=== PATIENT | female | born 1965 | race African-American/Black ===

== ENCOUNTER 2021-04-17 13:53 | Inpatient (IN) | payer BC ==
[2021-04-17] MEDS ORDERED: methylPREDNISolone Sod Succ/PF 125 MG/2 ML VIAL ONE (14:14)
[2021-04-17] MEDS ORDERED: Albuterol Sulfate 2.5 mg/3 ml Neb ONE ×2 (14:15→14:16)
[2021-04-17 14:34] LABS: #Basophils 0.1 thou/uL (0.0-0.2); #Eosinphils 0.1 thou/uL (0.0-0.7); #Lymphocytes 1.5 thou/uL (1.20-3.40); #Monocytes 0.5 thou/uL (0.11-0.59); #Neutrophils 3.6 thou/uL (1.40-6.50); %Eosinophils 2.6 % (0.0-10.0); %Lymphocytes 25.7 % (21.0-51.0); %Monocytes 8.1 % (0.0-10.0); %Neutrophils 62.6 % (42.0-75.0); Hemoglobin 11.1 g/dL (12.0-16.0); Mean Corpuscular HGB CONC 33.8 g/dL (32.0-36.0); Mean Corpuscular Hemoglobin 27.3 pg (27.0-31.0); Mean Corpuscular Volume 80.8 fL (78.0-98.0); Platelet Count 237 thou/uL (130-400); Red Blood Cell (RBC) Count 4.07 mill/uL (4.20-5.40); White Blood Cell (WBC) Count 5.8 thou/uL (4.8-10.8)
[2021-04-17 15:08] LABS: ALT (SGPT) 10 U/L (8-55); AST (SGOT) 11 U/L (5-34); Albumin 3.7 g/dL (3.5-5.0); Alkaline Phosphatase 96 U/L (40-110); Anion Gap 12 mmol/L (10-20); BUN (Urea Nitrogen) 39 mg/dL (9.8-20.1); Bilirubin, Total 0.4 mg/dL (0.2-1.2); Calc. Creatinine Clearance 0 mL/min (70-130); Calcium 8.7 mg/dL (7.8-10.44); Carbon Dioxide 26 mmol/L (22-29); Chloride 104 mmol/L (98-107); Glucose 341 mg/dL (70-105); Potassium 4.7 mmol/L (3.5-5.1); Protein, Total 6.7 g/dL (6.0-8.3); Sodium 137 mmol/L (136-145)
[2021-04-17 17:01] LABS: Actual Bicarbonate (HCO3v) 25 mEq/L (22-28); Analyzer IN Cardio ER; Base Excess -0.8 mEq/L (-2.0 to +3.0); Calcium, Ionized (venous) 1.14 mmol/L (1.16-1.32); Chloride (VBG) 104 mmol/L (98-106); Hemoglobin (Hb) 11.6 g/dL (11.7-16.0); Potassium (VBG) 5.08 mmol/L (3.70-5.30); Sodium 136.9 mmol/L (133-146); pH (venous) 7.35 (7.32-7.43)
[2021-04-17] MEDS ORDERED: Ondansetron PF 4 MG/2 ML Vial IVP PRN (18:22)
[2021-04-17] MEDS ORDERED: Albuterol Sulfate 1.25 MG/3 ML NEB ONE (20:57)
[2021-04-17] MEDS ORDERED: Azithromycin 500 MG VIAL ONE (21:06)
[2021-04-17] MEDS: Azithromycin 500 MG in Sodium Chloride 0.9% 250 ML 250 ML IVPB SCH (21:07)
[2021-04-17] MEDS ORDERED: ALPRAZolam 0.25 MG TAB PO SCH (22:00)
[2021-04-18] MEDS ORDERED: Heparin 10,000 UNITS/ 10 ML VIAL ONE (00:37)
[2021-04-18] MEDS ORDERED: ALPRAZolam 0.25 MG TAB ONE (00:39)
[2021-04-18] MEDS ORDERED: methylPREDNISolone Sod Succ 40 MG VIAL ONE ×2 (01:14→06:16)
[2021-04-18] MEDS: methylPREDNISolone Sod Succ 40 MG VIAL IVP SCH ×4 (01:18→17:29)
[2021-04-18] MEDS: Heparin 5,000 UNITS/ML VIAL SC SCH ×4 (02:01→20:11)
[2021-04-18] MEDS ORDERED: Acetaminophen 325 MG TAB ONE ×2 (05:21→05:26)
[2021-04-18 05:24] LABS: #Basophils 0.1 thou/uL (0.0-0.2); #Monocytes 0.1 thou/uL (0.11-0.59); #Neutrophils 10.2 thou/uL (1.40-6.50); %Basophils 0.4 % (0.0-1.0); %Eosinophils 0.1 % (0.0-10.0); %Monocytes 1.2 % (0.0-10.0); %Neutrophils 89.3 % (42.0-75.0); Hemoglobin 12.4 g/dL (12.0-16.0); Mean Corpuscular HGB CONC 33.2 g/dL (32.0-36.0); Mean Corpuscular Volume 81.2 fL (78.0-98.0); Platelet Count 277 thou/uL (130-400); RBC Distribution Width 13.3 % (11.5-14.5); Red Blood Cell (RBC) Count 4.59 mill/uL (4.20-5.40); White Blood Cell (WBC) Count 11.5 thou/uL (4.8-10.8)
[2021-04-18] MEDS: Acetaminophen 325 MG TAB PO PRN ×2 (05:24→15:17)
[2021-04-18 05:52] LABS: Anion Gap 16 mmol/L (10-20); BUN (Urea Nitrogen) 42 mg/dL (9.8-20.1); Calc. Creatinine Clearance 0 mL/min (70-130); Calcium 9.9 mg/dL (7.8-10.44); Carbon Dioxide 23 mmol/L (22-29); Chloride 102 mmol/L (98-107); Glucose 418 mg/dL (70-105); Potassium 4.8 mmol/L (3.5-5.1); Sodium 136 mmol/L (136-145)
[2021-04-18] MEDS ORDERED: traMADol HCl 50 MG TAB ONE (06:55)
[2021-04-18] MEDS ORDERED: traMADol HCl 50 MG TAB PO SCH (07:00)
[2021-04-18] MEDS ORDERED: Prevnar 13-Val Conj/PF 0.5 ML SYRINGE IM ONE (09:00)
[2021-04-18 11:14] LABS: SARS-CoV-2 PCR by NAA Not Detected (NotDetected)
[2021-04-18] MEDS ORDERED: cloNIDine 0.3 MG TAB PO SCH ×2 (12:30→21:00)
[2021-04-18] MEDS ORDERED: Carvedilol 25 MG TAB PO SCH (12:30)
[2021-04-18 12:35] VITALS: BMI 38.5
[2021-04-18] MEDS ORDERED: Dextrose 5% in Water 1,000 ML IV PRN (16:30)
[2021-04-18] MEDS ORDERED: Dextrose 50% Abboject 50 ML SYRINGE SLOW IVP PRN (16:30)
[2021-04-18] MEDS: Insulin Regular 300 UNITS/3 ML VIAL SC PRN ×2 (17:29→22:01)
[2021-04-18] MEDS: Azithromycin 500 MG in Sodium Chloride 0.9% 250 ML 250 ML IVPB SCH (17:30)
[2021-04-18] MEDS ORDERED: Sodium Bicarbonate 75 MEQ in Sodium Chloride 0.45% 1,000 ML IV ONE (19:30)
[2021-04-18] MEDS ORDERED: NIFEdipine XL 60 MG TAB PO SCH (19:30)
[2021-04-18] MEDS: Carvedilol 25 MG TAB PO SCH (20:11)
[2021-04-18 20:13] LABS: Bacteria/HPF None Seen HPF (None Seen); Bilirubin Negative (Negative); Blood, Urine Trace (Negative); Clarity Clear (Clear); Glucose, Urine (Dipstick) Greater than 1000 mg/dL (Negative); Ketone, Urine Negative (Negative); Leukocyte Negative Leu/uL (Negative); Nitrite Negative (Negative); Protein, Urine (Dipstick) 200 mg/dL (Neg-Trace); RBC/HPF 0-3 HPF (0-3); Specific Gravity, Urine 1.015 (1.002-1.036); Squamous Epithelial 0-3 HPF (0-3); Urobilinogen Normal mg/dL (Less than 2); WBC/HPF 0-3 HPF (0-3)
[2021-04-18 20:17] LABS: Urine Culture Reflex No No
[2021-04-18 20:37] LABS: Creatinine, Urine 32.47 mg/dL (47-110)
[2021-04-19] MEDS: methylPREDNISolone Sod Succ 40 MG VIAL IVP SCH ×4 (00:55→22:21)
[2021-04-19 04:34] LABS: #Lymphocytes 1.1 thou/uL (1.20-3.40); #Monocytes 0.4 thou/uL (0.11-0.59); #Neutrophils 10.2 thou/uL (1.40-6.50); %Basophils 0.4 % (0.0-1.0); %Lymphocytes 9.2 % (21.0-51.0); %Monocytes 3.5 % (0.0-10.0); %Neutrophils 86.8 % (42.0-75.0); Hemoglobin 11.5 g/dL (12.0-16.0); Mean Corpuscular HGB CONC 32.7 g/dL (32.0-36.0); Mean Corpuscular Hemoglobin 26.7 pg (27.0-31.0); Mean Corpuscular Volume 81.5 fL (78.0-98.0); Mean Platelet Volume 8.1 fL (7.4-10.4); Platelet Count 260 thou/uL (130-400); RBC Distribution Width 13.3 % (11.5-14.5); Red Blood Cell (RBC) Count 4.32 mill/uL (4.20-5.40); White Blood Cell (WBC) Count 11.8 thou/uL (4.8-10.8)
[2021-04-19 04:52] LABS: Iron 96 ug/dL (50-170); Iron Binding Capacity, Total 299 mcg/dL (265-497)
[2021-04-19 04:55] LABS: Anion Gap 15 mmol/L (10-20); BUN (Urea Nitrogen) 49 mg/dL (9.8-20.1); Calc. Creatinine Clearance 35 mL/min (70-130); Carbon Dioxide 23 mmol/L (22-29); Chloride 99 mmol/L (98-107); Potassium 4.6 mmol/L (3.5-5.1); Sodium 132 mmol/L (136-145)
[2021-04-19 04:56] LABS: ALT (SGPT) 11 U/L (8-55); AST (SGOT) 10 U/L (5-34); Albumin 3.7 g/dL (3.5-5.0); Alkaline Phosphatase 91 U/L (40-110); Bilirubin, Total 0.3 mg/dL (0.2-1.2); Calcium 9.3 mg/dL (7.8-10.44); Globulin 3.9 g/dL (2.4-3.5); Glucose 389 mg/dL (70-105); Protein, Total 7.6 g/dL (6.0-8.3)
[2021-04-19] MEDS: Insulin Regular 300 UNITS/3 ML VIAL SC PRN ×5 (05:45→20:37)
[2021-04-19] MEDS ORDERED: Lantus 1000 UNITS/10 ML VIAL SC SCH ×4 (09:00→21:00)
[2021-04-19] MEDS ORDERED: NIFEdipine XL 60 MG TAB PO SCH (09:00)
[2021-04-19] MEDS: Aspirin 81 mg Enteric Coated Tablet PO SCH (09:44)
[2021-04-19] MEDS: DULoxetine 30 MG CAP PO SCH (09:44)
[2021-04-19] MEDS: Atorvastatin Calcium 40 MG TAB PO SCH (09:44)
[2021-04-19] MEDS: Gabapentin 100 MG CAP PO SCH (09:45)
[2021-04-19] MEDS: Acetaminophen 325 MG TAB PO PRN ×2 (09:45→22:54)
[2021-04-19] MEDS: Ezetimibe 10 MG TAB PO SCH (09:45)
[2021-04-19] MEDS: NIFEdipine XL 60 MG TAB PO SCH ×2 (09:46→20:38)
[2021-04-19] MEDS: Carvedilol 25 MG TAB PO SCH (09:46)
[2021-04-19] MEDS: Heparin 5,000 UNITS/ML VIAL SC SCH ×3 (09:46→20:35)
[2021-04-19] MEDS ORDERED: Labetalol 100 MG TAB PO SCH (10:15)
[2021-04-19] MEDS: Sodium Chloride 0.9% 1,000 ML IV SCH ×2 (10:33→20:30)
[2021-04-19] MEDS: Azithromycin 500 MG in Sodium Chloride 0.9% 250 ML 250 ML IVPB SCH (19:49)
[2021-04-19] MEDS: Labetalol 100 MG TAB PO SCH (20:35)
[2021-04-19] MEDS: ALPRAZolam 0.25 MG TAB PO PRN (22:51)
[2021-04-20] MEDS: methylPREDNISolone Sod Succ 40 MG VIAL IVP SCH ×2 (05:56→21:34)
[2021-04-20] MEDS: Insulin Regular 300 UNITS/3 ML VIAL SC PRN ×4 (05:57→17:04)
[2021-04-20] MEDS: Sodium Chloride 0.9% 1,000 ML IV SCH ×3 (05:57→18:48)
[2021-04-20] MEDS ORDERED: Lantus 1000 UNITS/10 ML VIAL SC SCH ×2 (07:41→09:00)
[2021-04-20 07:45] LABS: Albumin 3.6 g/dL (3.5-5.0); Anion Gap 15 mmol/L (10-20); BUN (Urea Nitrogen) 51 mg/dL (9.8-20.1); BUN/Creatinine Ratio 15.84; Calc. Creatinine Clearance 36 mL/min (70-130); Calcium 8.7 mg/dL (7.8-10.44); Carbon Dioxide 24 mmol/L (22-29); Chloride 101 mmol/L (98-107); Glucose 462 mg/dL (70-105); Phosphorus 4.7 mg/dL (2.3-4.7); Potassium 4.7 mmol/L (3.5-5.1); Sodium 135 mmol/L (136-145)
[2021-04-20 09:20] LABS: #Monocytes 0.4 thou/uL (0.11-0.59); #Neutrophils 10.1 thou/uL (1.40-6.50); %Basophils 0.3 % (0.0-1.0); %Lymphocytes 8.7 % (21.0-51.0); %Monocytes 3.4 % (0.0-10.0); %Neutrophils 87.6 % (42.0-75.0); Hemoglobin 11.5 g/dL (12.0-16.0); Mean Corpuscular HGB CONC 32.4 g/dL (32.0-36.0); Mean Corpuscular Hemoglobin 26.7 pg (27.0-31.0); Mean Corpuscular Volume 82.5 fL (78.0-98.0); Mean Platelet Volume 8.5 fL (7.4-10.4); Platelet Count 256 thou/uL (130-400); RBC Distribution Width 13.4 % (11.5-14.5); Red Blood Cell (RBC) Count 4.29 mill/uL (4.20-5.40); White Blood Cell (WBC) Count 11.5 thou/uL (4.8-10.8)
[2021-04-20 09:41] LABS: ALT (SGPT) 14 U/L (8-55); AST (SGOT) 11 U/L (5-34); Albumin 3.6 g/dL (3.5-5.0); Alkaline Phosphatase 88 U/L (40-110); Anion Gap 17 mmol/L (10-20); BUN (Urea Nitrogen) 52 mg/dL (9.8-20.1); Bilirubin, Total 0.4 mg/dL (0.2-1.2); Calc. Creatinine Clearance 35 mL/min (70-130); Calcium 8.3 mg/dL (7.8-10.44); Carbon Dioxide 23 mmol/L (22-29); Chloride 98 mmol/L (98-107); Globulin 3.5 g/dL (2.4-3.5); Potassium 4.7 mmol/L (3.5-5.1); Protein, Total 7.1 g/dL (6.0-8.3); Sodium 133 mmol/L (136-145)
[2021-04-20] MEDS: Ezetimibe 10 MG TAB PO SCH (09:55)
[2021-04-20] MEDS: Labetalol 100 MG TAB PO SCH ×2 (09:55→21:32)
[2021-04-20] MEDS: DULoxetine 30 MG CAP PO SCH (09:55)
[2021-04-20] MEDS: Heparin 5,000 UNITS/ML VIAL SC SCH ×3 (09:55→21:32)
[2021-04-20] MEDS: Atorvastatin Calcium 40 MG TAB PO SCH (09:56)
[2021-04-20] MEDS: NIFEdipine XL 60 MG TAB PO SCH ×2 (09:57→21:31)
[2021-04-20] MEDS: Gabapentin 100 MG CAP PO SCH (09:57)
[2021-04-20] MEDS: Aspirin 81 mg Enteric Coated Tablet PO SCH (09:57)
[2021-04-20 10:03] LABS: Glucose 623 mg/dL (70-105)
[2021-04-20] MEDS: HumaLOG 300 UNITS/3 ML VIAL SC SCH ×2 (17:03→17:06)
[2021-04-20] MEDS: Azithromycin 500 MG in Sodium Chloride 0.9% 250 ML 250 ML IVPB SCH (17:11)
[2021-04-20] MEDS: ALPRAZolam 0.25 MG TAB PO PRN (18:48)
[2021-04-20] MEDS: HumaLOG 300 UNITS/3 ML VIAL SC PRN (21:34)
[2021-04-21] MEDS: Sodium Chloride 0.9% 1,000 ML IV SCH ×3 (03:01→17:25)
[2021-04-21 06:32] LABS: #Basophils 0.1 thou/uL (0.0-0.2); #Lymphocytes 1.8 thou/uL (1.20-3.40); #Monocytes 0.5 thou/uL (0.11-0.59); #Neutrophils 8.5 thou/uL (1.40-6.50); %Basophils 0.6 % (0.0-1.0); %Eosinophils 0.1 % (0.0-10.0); %Lymphocytes 16.3 % (21.0-51.0); %Monocytes 4.8 % (0.0-10.0); %Neutrophils 78.3 % (42.0-75.0); Hemoglobin 12.6 g/dL (12.0-16.0); Mean Corpuscular HGB CONC 32.3 g/dL (32.0-36.0); Mean Corpuscular Hemoglobin 26.6 pg (27.0-31.0); Mean Corpuscular Volume 82.4 fL (78.0-98.0); Mean Platelet Volume 8.9 fL (7.4-10.4); Platelet Count 264 thou/uL (130-400); RBC Distribution Width 13.5 % (11.5-14.5); Red Blood Cell (RBC) Count 4.75 mill/uL (4.20-5.40); White Blood Cell (WBC) Count 10.8 thou/uL (4.8-10.8)
[2021-04-21 06:36] LABS: Albumin 3.7 g/dL (3.5-5.0); Anion Gap 15 mmol/L (10-20); BUN (Urea Nitrogen) 44 mg/dL (9.8-20.1); BUN/Creatinine Ratio 14.57; Calc. Creatinine Clearance 39 mL/min (70-130); Calcium 8.8 mg/dL (7.8-10.44); Carbon Dioxide 23 mmol/L (22-29); Chloride 101 mmol/L (98-107); Glucose 365 mg/dL (70-105); Magnesium 2.1 mg/dL (1.6-2.6); Phosphorus 4.1 mg/dL (2.3-4.7); Potassium 4.5 mmol/L (3.5-5.1); Sodium 134 mmol/L (136-145)
[2021-04-21] MEDS: Insulin Regular 300 UNITS/3 ML VIAL SC PRN ×3 (06:41→17:21)
[2021-04-21] MEDS: Labetalol 100 MG TAB PO SCH ×2 (08:19→20:49)
[2021-04-21] MEDS: Atorvastatin Calcium 40 MG TAB PO SCH (08:20)
[2021-04-21] MEDS: Aspirin 81 mg Enteric Coated Tablet PO SCH (08:20)
[2021-04-21] MEDS: NIFEdipine XL 60 MG TAB PO SCH ×2 (08:20→20:49)
[2021-04-21] MEDS: Ezetimibe 10 MG TAB PO SCH (08:20)
[2021-04-21] MEDS: Gabapentin 100 MG CAP PO SCH (08:20)
[2021-04-21] MEDS: HumaLOG 300 UNITS/3 ML VIAL SC SCH ×3 (08:21→17:21)
[2021-04-21] MEDS: Heparin 5,000 UNITS/ML VIAL SC SCH ×3 (08:21→20:50)
[2021-04-21] MEDS: DULoxetine 30 MG CAP PO SCH (08:21)
[2021-04-21] MEDS: Lantus 1000 UNITS/10 ML VIAL SC SCH (08:28)
[2021-04-21] MEDS: methylPREDNISolone Sod Succ 40 MG VIAL IVP SCH (08:29)
[2021-04-21] MEDS ORDERED: Lantus 1000 UNITS/10 ML VIAL SC SCH ×2 (09:00→21:00)
[2021-04-21] MEDS: Azithromycin 500 MG in Sodium Chloride 0.9% 250 ML 250 ML IVPB SCH (17:19)
[2021-04-21] MEDS: HumaLOG 300 UNITS/3 ML VIAL SC PRN (20:50)
[2021-04-22] MEDS: Sodium Chloride 0.9% 1,000 ML IV SCH ×2 (03:38→11:00)
[2021-04-22] MEDS ORDERED: predniSONE 20 MG TAB PO SCH (08:00)
[2021-04-22 08:39] LABS: #Eosinphils 0.1 thou/uL (0.0-0.7); #Lymphocytes 4.2 thou/uL (1.20-3.40); #Monocytes 0.8 thou/uL (0.11-0.59); #Neutrophils 4.8 thou/uL (1.40-6.50); %Basophils 0.3 % (0.0-1.0); %Eosinophils 0.9 % (0.0-10.0); %Lymphocytes 42.2 % (21.0-51.0); %Monocytes 8.2 % (0.0-10.0); %Neutrophils 48.5 % (42.0-75.0); Mean Corpuscular HGB CONC 31.5 g/dL (32.0-36.0); Mean Corpuscular Hemoglobin 26.2 pg (27.0-31.0); Mean Corpuscular Volume 83.1 fL (78.0-98.0); Mean Platelet Volume 8.2 fL (7.4-10.4); Platelet Count 277 thou/uL (130-400); RBC Distribution Width 13.5 % (11.5-14.5); Red Blood Cell (RBC) Count 4.95 mill/uL (4.20-5.40); White Blood Cell (WBC) Count 9.9 thou/uL (4.8-10.8)
[2021-04-22] MEDS: Ezetimibe 10 MG TAB PO SCH (08:59)
[2021-04-22] MEDS: Atorvastatin Calcium 40 MG TAB PO SCH (09:00)
[2021-04-22] MEDS: Aspirin 81 mg Enteric Coated Tablet PO SCH (09:00)
[2021-04-22 09:01] LABS: ALT (SGPT) 16 U/L (8-55); AST (SGOT) 15 U/L (5-34); Albumin 3.4 g/dL (3.5-5.0); Alkaline Phosphatase 79 U/L (40-110); Anion Gap 14 mmol/L (10-20); BUN (Urea Nitrogen) 36 mg/dL (9.8-20.1); Bilirubin, Total 0.5 mg/dL (0.2-1.2); Calc. Creatinine Clearance 42 mL/min (70-130); Calcium 8.2 mg/dL (7.8-10.44); Carbon Dioxide 28 mmol/L (22-29); Chloride 102 mmol/L (98-107); Globulin 3.2 g/dL (2.4-3.5); Glucose 168 mg/dL (70-105); Magnesium 1.6 mg/dL (1.6-2.6); Potassium 3.7 mmol/L (3.5-5.1); Protein, Total 6.6 g/dL (6.0-8.3); Sodium 140 mmol/L (136-145)
[2021-04-22] MEDS: Gabapentin 100 MG CAP PO SCH (09:01)
[2021-04-22] MEDS: Labetalol 100 MG TAB PO SCH (09:01)
[2021-04-22] MEDS: NIFEdipine XL 60 MG TAB PO SCH (09:01)
[2021-04-22] MEDS: DULoxetine 30 MG CAP PO SCH (09:02)
[2021-04-22] MEDS: Heparin 5,000 UNITS/ML VIAL SC SCH (09:03)
[2021-04-22] MEDS: HumaLOG 300 UNITS/3 ML VIAL SC SCH ×2 (09:03→13:24)
[2021-04-22] MEDS: Lantus 1000 UNITS/10 ML VIAL SC SCH (09:04)
[2021-04-22] MEDS ORDERED: Magnesium 2 GM/50 ML 2 GM in Premix Bag 1 BAG IVPB SCH (10:15)
[2021-04-22 11:19] VITALS: BP 137/73; TEMP 98.7
== END 2021-04-22 15:25 | disposition home or self-care (01) | DRG 682 ==
LOC: ERS 13:53 → ERHOLD 18:07 → 2NO 04-18 11:27 → T4-A 04-19 18:50
PROVIDERS: ADMIT Internal Medicine; ATTEND Internal Medicine
DX: N17.9 Acute kidney failure, unspecified (principal); J96.01 Acute respiratory failure with hypoxia; I50.42 Chronic combined systolic (congestive) and diastolic (congestive) heart failure; J44.1 Chronic obstructive pulmonary disease with (acute) exacerbation; I13.0 Hypertensive heart and chronic kidney disease with heart failure and stage 1 through stage 4 chronic kidney disease, or unspecified chronic kidney disease; Z20.822 Contact with and (suspected) exposure to COVID-19; Z66 Do not resuscitate; F32.9 Major depressive disorder, single episode, unspecified; F43.10 Post-traumatic stress disorder, unspecified; E66.01 Morbid (severe) obesity due to excess calories; N18.4 Chronic kidney disease, stage 4 (severe); M19.90 Unspecified osteoarthritis, unspecified site; E11.22 Type 2 diabetes mellitus with diabetic chronic kidney disease; E11.40 Type 2 diabetes mellitus with diabetic neuropathy, unspecified; E11.65 Type 2 diabetes mellitus with hyperglycemia; K21.9 Gastro-esophageal reflux disease without esophagitis; E78.5 Hyperlipidemia, unspecified; E78.00 Pure hypercholesterolemia, unspecified; Z88.2 Allergy status to sulfonamides; Z79.82 Long term (current) use of aspirin; Z79.4 Long term (current) use of insulin; Z79.899 Other long term (current) drug therapy; Z68.38 Body mass index [BMI] 38.0-38.9, adult; Z91.14 Patient's other noncompliance with medication regimen; Z90.49 Acquired absence of other specified parts of digestive tract
CPT/HCPCS: 36415; 36416; 71045; 80048; 80053; 80069; 81001; 82570; 82728; 82805; 83540; 83550; 83735; 83880; 84156; 84300; 84484; 84540; 85025; 85379; 93005; 93010; 93306; 94640; 94644; 94760; 96374; J0456; J1644; J1815; J2920; J2930; J3475; J7050; J7512; J7611; J7620; U0003; U0005

== ENCOUNTER 2022-05-29 08:57 | Outpatient (CLI) | payer BC | END 2022-05-29 08:58 | disposition home or self-care (01) | LOC: BICMAMMO 08:57 | PROVIDERS: ATTEND Obstetrics & Gynecology | DX: N63.10 Unspecified lump in the right breast, unspecified quadrant (principal) | CPT/HCPCS: 77066; G0279 ==

== ENCOUNTER → 2022-07-26 | Day surgery (SDC) | payer BC | END | disposition home or self-care (01) | LOC: BICULT 09:06 | PROVIDERS: ATTEND Family Medicine | PROC: 0H9T3ZX Drainage of Right Breast, Percutaneous Approach, Diagnostic (ICD-10-PCS; principal; 2022-07-26) | PROC: 07B53ZX Excision of Right Axillary Lymphatic, Percutaneous Approach, Diagnostic (ICD-10-PCS; principal; 2022-07-26) | DX: C50.811 Malignant neoplasm of overlapping sites of right female breast (principal); C77.3 Secondary and unspecified malignant neoplasm of axilla and upper limb lymph nodes; Z17.0 Estrogen receptor positive status [ER+]; Z88.2 Allergy status to sulfonamides; Z88.8 Allergy status to other drugs, medicaments and biological substances; Z91.041 Radiographic dye allergy status | CPT/HCPCS: 19083; 38505; 88305; 88342 ==

== ENCOUNTER 2023-04-05 07:26 | Day surgery (SDC) | payer OTHER ==
[2023-04-02 14:28] VITALS: BMI 35.4
[2023-04-05] MEDS ORDERED: Acetaminophen 500 MG TAB ONE (09:06)
[2023-04-05] MEDS ORDERED: Lidocaine 1% (PF) 30 ML VIAL ONE (11:12)
[2023-04-05] MEDS ORDERED: Lidocaine 2% PF 5 ML VIAL ONE (11:12)
[2023-04-05] MEDS ORDERED: Methylene Blue 50 MG/10 ML AMPUL ONE (11:12)
[2023-04-05] MEDS ORDERED: Bupivacaine 0.25% HCL 30 ML VIAL ONE (11:12)
[2023-04-05] MEDS ORDERED: Isosulfan Blue 50 MG/5 ML VIAL ONE (11:14)
[2023-04-05] MEDS ORDERED: Bupivacaine/Epinephrine 0.25% 30 ML VIAL ONE (11:14)
[2023-04-05] MEDS ORDERED: fentaNYL PF 100 MCG/2 ML SYRINGE ONE (12:06)
[2023-04-05] MEDS ORDERED: Sodium Chloride 0.9% 100 ML ONE (12:33)
[2023-04-05] MEDS ORDERED: CEFAZOLIN 2 GM VIAL ONE (12:33)
[2023-04-05] MEDS ORDERED: Metoclopramide HCl 10 MG/2 ML VIAL ONE (12:50)
[2023-04-05] MEDS ORDERED: Rocuronium Bromide 10 MG/ML (10ML VIAL) ONE (12:50)
[2023-04-05] MEDS ORDERED: PROPOFOL 200 MG/20 ML VIAL ONE (12:50)
[2023-04-05] MEDS ORDERED: Succinylcholine 200 MG/10 ml SYRINGE FS ONE (12:50)
[2023-04-05] MEDS ORDERED: Ondansetron PF 4 MG/2 ML Vial ONE (12:50)
== END 2023-04-05 17:35 | disposition home or self-care (01) ==
LOC: NM 07:26 → SDC 17:35
PROVIDERS: ATTEND Specialist
PROC: 0HTT0ZZ Resection of Right Breast, Open Approach (ICD-10-PCS; principal; 2023-04-05)
PROC: 07B50ZZ Excision of Right Axillary Lymphatic, Open Approach (ICD-10-PCS; principal; 2023-04-05)
DX: C50.811 Malignant neoplasm of overlapping sites of right female breast (principal); C79.9 Secondary malignant neoplasm of unspecified site; E78.5 Hyperlipidemia, unspecified; E11.9 Type 2 diabetes mellitus without complications; I10 Essential (primary) hypertension; F41.9 Anxiety disorder, unspecified; Z17.0 Estrogen receptor positive status [ER+]; Z90.49 Acquired absence of other specified parts of digestive tract; Z90.89 Acquired absence of other organs; Z79.899 Other long term (current) drug therapy; Z79.84 Long term (current) use of oral hypoglycemic drugs; Z88.0 Allergy status to penicillin; Z88.2 Allergy status to sulfonamides
CPT/HCPCS: 36416; 78195; 88307; 88309; 88341; 88342; A9541; C1713; J2001; J2405; J2704; J2765; J3490; Q9968; S0020

== ENCOUNTER 2023-06-27 08:00 | Day surgery (SDC) | payer BC ==
[2023-06-25 15:21] VITALS: BMI 32.5
[2023-06-27] MEDS ORDERED: Ketorolac Tromethamine 30 MG/ML VIAL ONE (08:21)
[2023-06-27] MEDS ORDERED: Acetaminophen 500 MG TAB ONE (08:21)
[2023-06-27] MEDS ORDERED: EPINEPHrine 1 MG/ML AMP ONE (08:42)
[2023-06-27] MEDS ORDERED: Bupivacaine 0.25% HCL 30 ML VIAL ONE (08:42)
[2023-06-27] MEDS ORDERED: fentaNYL PF 100 MCG/2 ML SYRINGE ONE (08:49)
[2023-06-27] MEDS ORDERED: CEFAZOLIN 2 GM VIAL ONE (08:57)
[2023-06-27] MEDS ORDERED: Sodium Chloride 0.9% 100 ML ONE (08:57)
[2023-06-27] MEDS ORDERED: PROPOFOL 200 MG/20 ML VIAL ONE (09:12)
[2023-06-27] MEDS ORDERED: ePHEDrine Sulfate 50 MG/10 ML VIAL ONE (09:12)
[2023-06-27] MEDS ORDERED: Ondansetron PF 4 MG/2 ML Vial ONE (09:12)
[2023-06-27] MEDS ORDERED: Lidocaine 1% PF 5 ML VIAL ONE (09:12)
== END 2023-06-27 11:15 | disposition short-term general hospital (02) ==
LOC: SDC 08:00
PROVIDERS: ATTEND Specialist
PROC: 0JHF3WZ Insertion of Totally Implantable Vascular Access Device into Left Upper Arm Subcutaneous Tissue and Fascia, Percutaneous Approach (ICD-10-PCS; principal; 2023-06-27)
DX: C50.811 Malignant neoplasm of overlapping sites of right female breast (principal); Z17.0 Estrogen receptor positive status [ER+]; E78.00 Pure hypercholesterolemia, unspecified; F41.9 Anxiety disorder, unspecified; E11.9 Type 2 diabetes mellitus without complications; I10 Essential (primary) hypertension; N18.9 Chronic kidney disease, unspecified; Z90.49 Acquired absence of other specified parts of digestive tract; Z90.89 Acquired absence of other organs; Z88.2 Allergy status to sulfonamides; Z88.0 Allergy status to penicillin; Z79.899 Other long term (current) drug therapy
CPT/HCPCS: 36416; 71045; 80053; 82248; 83615; 84100; 84550; C1788; J0171; J1642; J1885; J2405; J2704; J3490; S0020

== ENCOUNTER 2023-08-09 12:20 | Inpatient (IN) | payer BC, OTHER ==
[2023-08-09] MEDS ORDERED: Aspirin Chewable 81 MG TAB ONE (13:02)
[2023-08-09] MEDS ORDERED: dilTIAZem 25 MG/5 ML VIAL ONE (13:03)
[2023-08-09 13:29] LABS: Bacteria/HPF None Seen HPF (None Seen); Bilirubin Negative (Negative); Blood, Urine Trace (Negative); CAUTI Indications for Culture Dysuria,urgency,freq; Clarity Clear (Clear); Glucose, Urine (Dipstick) 500 mg/dL (Negative); Ketone, Urine Negative (Negative); Leukocyte Negative Leu/uL (Negative); Nitrite Negative (Negative); Protein, Urine (Dipstick) 100 mg/dL (Neg-Trace); RBC/HPF 0-3 HPF (0-3); Specific Gravity, Urine 1.008 (1.002-1.036); Squamous Epithelial 0-3 HPF (0-3); Urobilinogen Normal mg/dL (Less than 2)
[2023-08-09 13:34] LABS: Urine Culture Reflex No No
[2023-08-09 13:50] LABS: Hematocrit 22.2 % (36.0-47.0); Hemoglobin 7.2 g/dL (12.0-16.0); Mean Corpuscular HGB CONC 32.4 g/dL (32.0-36.0); Mean Corpuscular Hemoglobin 25.9 pg (27.0-31.0); Mean Corpuscular Volume 79.9 fl (78.0-98.0); Mean Platelet Volume 10.3 fL (7.4-10.4); RBC Distribution Width 17.8 % (11.5-14.5); Red Blood Cell (RBC) Count 2.78 mill/uL (4.20-5.40); White Blood Cell (WBC) Count 14.4 10x3/uL (4.8-10.8)
[2023-08-09 13:56] LABS: Delete Auto Diff?? YES; Manual Diff?? YES; Platelet Count 206 10x3/uL (130-400)
[2023-08-09 14:14] LABS: ALT (SGPT) 7 U/L (8-55); AST (SGOT) 12 U/L (5-34); Albumin 3.8 g/dL (3.5-5.0); Alkaline Phosphatase 124 U/L (40-110); Anion Gap 12 mmol/L (10-20); BUN (Urea Nitrogen) 41 mg/dL (9.8-20.1); Bilirubin, Total 0.2 mg/dL (0.2-1.2); Calc. Creatinine Clearance 0 mL/min (70-130); Calcium 8.2 mg/dL (7.8-10.44); Carbon Dioxide 24 mmol/L (22-29); Chloride 105 mmol/L (98-107); Estimated GFR 12; Globulin 3.1 g/dL (2.4-3.5); Glucose 106 mg/dL (70-105); Potassium 4.1 mmol/L (3.5-5.1); Protein, Total 6.9 g/dL (6.0-8.3); Sodium 137 mmol/L (136-145)
[2023-08-09 14:17] LABS: Anisocytosis SLIGHT = 6-15 cells HPF (0-5); Band 11 % (5-11); CellaVision Operator ID LAB.KB; Lymphocytes 6 % (21-51); Macrocytosis SLIGHT = 6-15 cells HPF (0-5); Monocytes 4 % (0-10); Neutrophil 79 % (42-75); Ovalocytes SLIGHT = 2-5 cells HPF (0-1); Platelet Adequacy Comment Platelets Normal; Polychromasia SLIGHT = 2-3 cells HPF (0-2); Schistocytes SLIGHT = 2-5 cells HPF (0-1); Smudge Cells 7.8 %; Tear Drops SLIGHT = 2-5 cells HPF (0-1); Total Cell Count 102
[2023-08-09 14:19] LABS: Troponin I 0.023 ng/mL (< 0.028)
[2023-08-09] MEDS ORDERED: methylPREDNISolone Sod Succ/PF 125 MG/2 ML VIAL ONE ×2 (16:03→16:04)
[2023-08-09] MEDS ORDERED: Famotidine/PF 20 mg/2ml Vial ONE (16:03)
[2023-08-09] MEDS ORDERED: diphenhydrAMINE 50 MG/ML VIAL ONE ×2 (16:03→16:04)
[2023-08-09] MEDS ORDERED: Ondansetron PF 4 MG/2 ML Vial IVP PRN (17:28)
[2023-08-09] MEDS ORDERED: Dextrose 5% in Water 1,000 ML IV PRN (17:29)
[2023-08-09] MEDS ORDERED: HumaLOG 300 UNITS/3 ML VIAL SC PRN ×2 (17:29)
[2023-08-09] MEDS ORDERED: Glucagon 1 MG/ML KIT IM PRN (17:29)
[2023-08-09] MEDS ORDERED: Dextrose 50% Abboject 50 ML SYRINGE SLOW IVP PRN (17:29)
[2023-08-09] MEDS ORDERED: Ipratropium/Albuterol 3 ML NEB EZPAP PRN (17:33)
[2023-08-09 18:30] LABS: Magnesium 1.4 mg/dL (1.6-2.6)
[2023-08-09] MEDS ORDERED: Magnesium 2 GM/50 ML(in water) 2 GM in Premix Bag 1 BAG IVPB SCH (20:45)
[2023-08-09] MEDS ORDERED: Atorvastatin Calcium 40 MG TAB PO SCH (21:00)
[2023-08-09] MEDS: Gabapentin 100 MG CAP PO SCH (21:12)
[2023-08-09] MEDS: Sodium Chloride 0.9% 1,000 ML IV SCH (21:14)
[2023-08-09] MEDS: Acetaminophen 325 MG TAB PO PRN (21:36)
[2023-08-09 22:03] VITALS: BMI 33.5
[2023-08-09 22:11] LABS: Creatinine, Urine 35.55 mg/dL (47-110)
[2023-08-10 05:17] LABS: Hematocrit 21.7 % (36.0-47.0); Hemoglobin 6.8 g/dL (12.0-16.0); Mean Corpuscular HGB CONC 31.3 g/dL (32.0-36.0); Mean Corpuscular Hemoglobin 25.4 pg (27.0-31.0); Platelet Count 248 10x3/uL (130-400); RBC Distribution Width 18.2 % (11.5-14.5); Red Blood Cell (RBC) Count 2.68 mill/uL (4.20-5.40); White Blood Cell (WBC) Count 12.9 10x3/uL (4.8-10.8)
[2023-08-10 05:39] LABS: Delete Auto Diff?? YES; Manual Diff?? YES
[2023-08-10 06:05] LABS: Albumin 3.6 g/dL (3.5-5.0); Anion Gap 16 mmol/L (10-20); BUN (Urea Nitrogen) 44 mg/dL (9.8-20.1); BUN/Creatinine Ratio 10.21; Calc. Creatinine Clearance 23 mL/min (70-130); Carbon Dioxide 21 mmol/L (22-29); Chloride 106 mmol/L (98-107); Estimated GFR 11; Glucose 135 mg/dL (70-105); Magnesium 1.9 mg/dL (1.6-2.6); Phosphorus 5.7 mg/dL (2.3-4.7); Potassium 4.9 mmol/L (3.5-5.1); Sodium 138 mmol/L (136-145)
[2023-08-10 06:39] LABS: Anisocytosis MODERATE=16-30 cells HPF (0-5); Band 7 % (5-11); CellaVision Operator ID LAB.JMM; Lymphocytes 3 % (21-51); Macrocytosis MODERATE=16-30 cells HPF (0-5); Metamyelocyte 1 % (0-0); Monocytes 1 % (0-10); Myelocyte 1 % (0-0); Neutrophil 87 % (42-75); Nucleated RBC (Manual Ct) 1 % (0); Platelet Adequacy Comment Platelets Normal; Polychromasia SLIGHT = 2-3 cells HPF (0-2); Smudge Cells 12.9 %; Tear Drops SLIGHT = 2-5 cells HPF (0-1); Total Cell Count 101
[2023-08-10] MEDS: Sodium Chloride 0.9% 1,000 ML IV SCH ×2 (06:41→17:15)
[2023-08-10] MEDS ORDERED: NIFEdipine XL 60 MG ER.TAB PO SCH (09:00)
[2023-08-10] MEDS ORDERED: Labetalol HCl 100 MG TAB PO SCH (09:00)
[2023-08-10] MEDS: Acetaminophen 325 MG TAB PO PRN ×3 (09:05→20:35)
[2023-08-10] MEDS: NIFEdipine XL 60 MG ER.TAB PO SCH ×2 (09:05→20:35)
[2023-08-10] MEDS: DULoxetine 20 MG CAP PO SCH ×2 (09:05→20:34)
[2023-08-10] MEDS: Gabapentin 100 MG CAP PO SCH ×3 (09:05→20:34)
[2023-08-10] MEDS: Febuxostat 40 MG TAB PO SCH (09:06)
[2023-08-10] MEDS: Empagliflozin 10 MG TAB PO SCH (09:06)
[2023-08-10] MEDS: Insulin Glargine 30 UNITS/0.3 ML VIAL SC SCH (09:07)
[2023-08-10] MEDS ORDERED: diphenhydrAMINE 50 MG/ML VIAL ONE ×2 (10:44→11:09)
[2023-08-10] MEDS ORDERED: methylPREDNISolone Sod Succ 40 MG VIAL ONE ×2 (10:56→11:09)
[2023-08-10] MEDS ORDERED: methylPREDNISolone Sod Succ/PF 125 MG/2 ML VIAL IVP SCH (11:00)
[2023-08-10] MEDS ORDERED: Famotidine/PF 20 mg/2ml Vial ONE (11:09)
[2023-08-10] MEDS ORDERED: EPINEPHrine 1 MG/10 ML Abboject SYRINGE ONE (11:09)
[2023-08-10 12:33] LABS: Hematocrit 23.4 % (36.0-47.0); Hemoglobin 7.5 g/dL (12.0-16.0)
[2023-08-10] MEDS ORDERED: Sodium Chloride 0.9% 1,000 ML IV SCH (17:45)
[2023-08-11 05:27] LABS: #Monocytes 0.3 thou/uL (0.11-0.59); #Neutrophils 4.8 thou/uL (1.40-6.50); %Basophils 0.2 % (0.0-1.0); %Lymphocytes 8.2 % (21.0-51.0); %Monocytes 5.1 % (0.0-10.0); %Neutrophils 84.5 % (42.0-75.0); Hematocrit 21.4 % (36.0-47.0); Hemoglobin 6.8 g/dL (12.0-16.0); Mean Corpuscular HGB CONC 31.8 g/dL (32.0-36.0); Mean Corpuscular Hemoglobin 25.8 pg (27.0-31.0); Mean Corpuscular Volume 81.1 fl (78.0-98.0); Mean Platelet Volume 10.5 fL (7.4-10.4); Platelet Count 260 10x3/uL (130-400); RBC Distribution Width 17.6 % (11.5-14.5); Red Blood Cell (RBC) Count 2.64 mill/uL (4.20-5.40); White Blood Cell (WBC) Count 5.6 10x3/uL (4.8-10.8)
[2023-08-11 05:48] LABS: Anion Gap 14 mmol/L (10-20); BUN (Urea Nitrogen) 51 mg/dL (9.8-20.1); Calc. Creatinine Clearance 24 mL/min (70-130); Calcium 7.7 mg/dL (7.8-10.44); Carbon Dioxide 23 mmol/L (22-29); Chloride 105 mmol/L (98-107); Estimated GFR 12; Glucose 98 mg/dL (70-105); Magnesium 1.8 mg/dL (1.6-2.6); Potassium 4.5 mmol/L (3.5-5.1); Sodium 137 mmol/L (136-145)
[2023-08-11] MEDS: Sodium Chloride 0.9% 1,000 ML IV SCH ×2 (09:03→16:09)
[2023-08-11] MEDS: DULoxetine 20 MG CAP PO SCH ×2 (09:04→20:13)
[2023-08-11] MEDS: Empagliflozin 10 MG TAB PO SCH (09:04)
[2023-08-11] MEDS: Febuxostat 40 MG TAB PO SCH (09:04)
[2023-08-11] MEDS: NIFEdipine XL 60 MG ER.TAB PO SCH ×2 (09:05→20:13)
[2023-08-11] MEDS: Gabapentin 100 MG CAP PO SCH ×3 (09:05→20:13)
[2023-08-11] MEDS: Insulin Glargine 30 UNITS/0.3 ML VIAL SC SCH (13:03)
[2023-08-11 13:08] LABS: Iron 204 ug/dL (50-170); Iron Binding Capacity, Total 201 mcg/dL (265-497)
[2023-08-11] MEDS: Acetaminophen 325 MG TAB PO PRN (16:12)
[2023-08-12] MEDS: Sodium Chloride 0.9% 1,000 ML IV SCH (00:30)
[2023-08-12 04:27] LABS: #Monocytes 0.1 thou/uL (0.11-0.59); #Neutrophils 2.9 thou/uL (1.40-6.50); %Basophils 0.6 % (0.0-1.0); %Lymphocytes 13.9 % (21.0-51.0); %Monocytes 2.9 % (0.0-10.0); %Neutrophils 82.3 % (42.0-75.0); Hematocrit 23.7 % (36.0-47.0); Hemoglobin 7.6 g/dL (12.0-16.0); Mean Corpuscular HGB CONC 32.1 g/dL (32.0-36.0); Mean Corpuscular Hemoglobin 25.8 pg (27.0-31.0); Mean Corpuscular Volume 80.3 fl (78.0-98.0); Mean Platelet Volume 10.1 fL (7.4-10.4); Platelet Count 292 10x3/uL (130-400); RBC Distribution Width 17.3 % (11.5-14.5); Red Blood Cell (RBC) Count 2.95 mill/uL (4.20-5.40); White Blood Cell (WBC) Count 3.5 10x3/uL (4.8-10.8)
[2023-08-12 04:59] LABS: Albumin 3.3 g/dL (3.5-5.0); Anion Gap 16 mmol/L (10-20); BUN (Urea Nitrogen) 46 mg/dL (9.8-20.1); BUN/Creatinine Ratio 12.17; Calc. Creatinine Clearance 26 mL/min (70-130); Calcium 7.5 mg/dL (7.8-10.44); Carbon Dioxide 22 mmol/L (22-29); Chloride 107 mmol/L (98-107); Estimated GFR 13; Glucose 94 mg/dL (70-105); Magnesium 1.6 mg/dL (1.6-2.6); Phosphorus 4.5 mg/dL (2.3-4.7); Potassium 4.5 mmol/L (3.5-5.1); Sodium 140 mmol/L (136-145); Uric Acid 6.4 mg/dL (2.6-6.0)
[2023-08-12] MEDS ORDERED: Magnesium Sulfate In Water 4 GM in Premix Bag 1 BAG IVPB SCH (06:00)
[2023-08-12] MEDS ORDERED: EPOETIN ALFA-EPBX (ESRD) 10,000 UNITS/ML VIAL SC SCH (09:00)
[2023-08-12] MEDS: Insulin Glargine 30 UNITS/0.3 ML VIAL SC SCH (09:12)
[2023-08-12] MEDS: Empagliflozin 10 MG TAB PO SCH (09:23)
[2023-08-12] MEDS: NIFEdipine XL 60 MG ER.TAB PO SCH (09:24)
[2023-08-12] MEDS: Gabapentin 100 MG CAP PO SCH (09:24)
[2023-08-12] MEDS: DULoxetine 20 MG CAP PO SCH (09:24)
[2023-08-12] MEDS: Febuxostat 40 MG TAB PO SCH (09:24)
[2023-08-12 12:17] VITALS: BP 159/88; TEMP 98.1
== END 2023-08-12 13:35 | disposition home or self-care (01) | DRG 309 ==
LOC: ERS 12:20 → 2SW 17:21 → OBSVTOIN 08-11 16:14 → SURG A 08-11 17:22
PROVIDERS: ADMIT Internal Medicine; ATTEND Internal Medicine
PROC: 30233N1 Transfusion of Nonautologous Red Blood Cells into Peripheral Vein, Percutaneous Approach (ICD-10-PCS; principal; 2023-08-10)
DX: I48.0 Paroxysmal atrial fibrillation (principal); I13.2 Hypertensive heart and chronic kidney disease with heart failure and with stage 5 chronic kidney disease, or end stage renal disease; I50.32 Chronic diastolic (congestive) heart failure; K52.1 Toxic gastroenteritis and colitis; N17.9 Acute kidney failure, unspecified; N18.5 Chronic kidney disease, stage 5; E78.5 Hyperlipidemia, unspecified; J44.9 Chronic obstructive pulmonary disease, unspecified; E11.22 Type 2 diabetes mellitus with diabetic chronic kidney disease; E11.42 Type 2 diabetes mellitus with diabetic polyneuropathy; D63.1 Anemia in chronic kidney disease; C50.911 Malignant neoplasm of unspecified site of right female breast; T45.1X5A Adverse effect of antineoplastic and immunosuppressive drugs, initial encounter; K21.9 Gastro-esophageal reflux disease without esophagitis; F32.A Depression, unspecified; F41.9 Anxiety disorder, unspecified; F43.10 Post-traumatic stress disorder, unspecified; D72.829 Elevated white blood cell count, unspecified; E79.0 Hyperuricemia without signs of inflammatory arthritis and tophaceous disease; E83.51 Hypocalcemia; I34.0 Nonrheumatic mitral (valve) insufficiency; D64.81 Anemia due to antineoplastic chemotherapy; E78.00 Pure hypercholesterolemia, unspecified; E86.9 Volume depletion, unspecified; E83.42 Hypomagnesemia; E86.0 Dehydration; T80.89XA Other complications following infusion, transfusion and therapeutic injection, initial encounter; D63.0 Anemia in neoplastic disease; Z88.2 Allergy status to sulfonamides; Z88.8 Allergy status to other drugs, medicaments and biological substances; Z79.82 Long term (current) use of aspirin; Z79.899 Other long term (current) drug therapy; Z90.49 Acquired absence of other specified parts of digestive tract; Z90.11 Acquired absence of right breast and nipple; Z98.890 Other specified postprocedural states; Z79.4 Long term (current) use of insulin
CPT/HCPCS: 36415; 36416; 36430; 71045; 80048; 80053; 80069; 81001; 82550; 82570; 82728; 83540; 83550; 83735; 84156; 84300; 84443; 84484; 84550; 85025; 85379; 86850; 86900; 86901; 93005; 93306; 96361; 96374; 96375; 96376; G0378; J1200; J1642; J1815; J2930; J3475; J7050; P9016; Q5105; S0028

== ENCOUNTER 2023-11-17 07:05 | Inpatient (IN) | payer BC, OTHER ==
[2023-11-17 07:59] LABS: #Basophils 0.1 thou/uL (0.0-0.2); #Monocytes 0.2 thou/uL (0.11-0.59); #Neutrophils 14.1 thou/uL (1.40-6.50); %Basophils 0.6 % (0.0-1.0); %Lymphocytes 3.1 % (21.0-51.0); %Monocytes 1.5 % (0.0-10.0); %Neutrophils 94.1 % (42.0-75.0); Hematocrit 27.8 % (36.0-47.0); Hemoglobin 8.9 g/dL (12.0-16.0); Mean Corpuscular Volume 84.2 fl (78.0-98.0); Mean Platelet Volume 11.1 fL (7.4-10.4); Platelet Count 531 10x3/uL (130-400); RBC Distribution Width 19.7 % (11.5-14.5)
[2023-11-17 08:25] LABS: ALT (SGPT) 13 U/L (8-55); AST (SGOT) 24 U/L (5-34); Albumin 3.4 g/dL (3.5-5.0); Alkaline Phosphatase 89 U/L (40-110); Anion Gap 23 mmol/L (10-20); BUN (Urea Nitrogen) 62 mg/dL (9.8-20.1); Bilirubin, Total 0.3 mg/dL (0.2-1.2); Calc. Creatinine Clearance 0 mL/min (70-130); Calcium 7.9 mg/dL (7.8-10.44); Carbon Dioxide 17 mmol/L (22-29); Chloride 98 mmol/L (98-107); Estimated GFR 9; Globulin 4.5 g/dL (2.4-3.5); Glucose 278 mg/dL (70-105); Potassium 5.2 mmol/L (3.5-5.1); Protein, Total 7.9 g/dL (6.0-8.3); Sodium 133 mmol/L (136-145)
[2023-11-17 08:28] LABS: Troponin I 0.057 ng/mL (< 0.028)
[2023-11-17] MEDS ORDERED: Amiodarone 450 MG, Admixture Fee 1 EACH in Dextrose 5% in Water 250 ML IVPB SCH (08:30)
[2023-11-17] MEDS ORDERED: Dextrose 5% in Water 1,000 ML IV PRN (09:09)
[2023-11-17] MEDS ORDERED: Dextrose 50% Abboject 50 ML SYRINGE SLOW IVP PRN (09:09)
[2023-11-17] MEDS ORDERED: Glucagon 1 MG/ML KIT IM PRN (09:09)
[2023-11-17] MEDS ORDERED: Furosemide 40 MG (4 mL) VIAL SLOW IVP SCH (09:15)
[2023-11-17] MEDS ORDERED: Amiodarone 450 MG in Dextrose 5% in Water 250 ML IVPB SCH (09:15)
[2023-11-17] MEDS ORDERED: Furosemide 40 MG (4 mL) VIAL ONE (09:16)
[2023-11-17 09:35] LABS: Hematocrit 28.1 % (36.0-47.0); Platelet Count 510 10x3/uL (130-400)
[2023-11-17] MEDS ORDERED: Heparin 25,000 units/D5W 500 ML ONE (10:06)
[2023-11-17] MEDS: Heparin 10,000 UNITS/ 10 ML VIAL SLOW IVP SCH (10:15)
[2023-11-17] MEDS: Heparin 25,000 units/D5W 500 ML IVPB SCH (10:16)
[2023-11-17] MEDS ORDERED: Sodium Bicarbonate 150 MEQ in Dextrose 5% in Water 1,000 ML IV SCH (11:00)
[2023-11-17] MEDS ORDERED: Labetalol HCl 100 MG/20 ML VIAL ONE (11:33)
[2023-11-17] MEDS: Labetalol HCl 100 MG/20 ML VIAL SLOW IVP PRN (11:39)
[2023-11-17] MEDS ORDERED: Albuterol 2.5 MG (3 mL) NEB ONE (12:07)
[2023-11-17] MEDS ORDERED: Ipratropium Bromide 2.5 ml Neb ONE (12:07)
[2023-11-17] MEDS: Ipratropium Bromide 2.5 ml Neb NEB SCH ×2 (12:13→21:48)
[2023-11-17] MEDS: Sodium Bicarbonate 150 MEQ in Sterile Water 1,000 ML IV SCH (12:57)
[2023-11-17] MEDS ORDERED: Metoprolol Tartrate 100 MG TAB PO SCH (13:00)
[2023-11-17 13:04] LABS: Troponin I 0.039 ng/mL (< 0.028)
[2023-11-17] MEDS ORDERED: HumaLOG 300 UNITS/3 ML VIAL ONE (14:06)
[2023-11-17] MEDS ORDERED: Metoprolol Tartrate 25 MG TAB ONE (14:09)
[2023-11-17] MEDS: HumaLOG 300 UNITS/3 ML VIAL SC PRN (14:12)
[2023-11-17] MEDS ORDERED: Albuterol 1.25 MG (3 mL) NEB NEB SCH (15:00)
[2023-11-17] MEDS ORDERED: NIFEdipine XL 60 MG ER.TAB PO SCH (15:45)
[2023-11-17 16:22] LABS: Troponin I 0.052 ng/mL (< 0.028)
[2023-11-17] MEDS: Metoprolol Tartrate 100 MG TAB PO SCH (22:25)
[2023-11-18] MEDS: Sodium Bicarbonate 150 MEQ in Sterile Water 1,000 ML IV SCH ×3 (01:11→17:35)
[2023-11-18] MEDS: Ipratropium/Albuterol 3 ML NEB NEB SCH ×4 (01:47→19:07)
[2023-11-18 05:33] LABS: #Neutrophils 11.8 thou/uL (1.40-6.50); %Basophils 0.2 % (0.0-1.0); %Lymphocytes 7.6 % (21.0-51.0); %Monocytes 7.2 % (0.0-10.0); %Neutrophils 84.4 % (42.0-75.0); Hematocrit 27.7 % (36.0-47.0); Hemoglobin 8.7 g/dL (12.0-16.0); Mean Corpuscular HGB CONC 31.4 g/dL (32.0-36.0); Mean Corpuscular Hemoglobin 27.1 pg (27.0-31.0); Mean Corpuscular Volume 86.3 fl (78.0-98.0); Mean Platelet Volume 11.6 fL (7.4-10.4); Platelet Count 579 10x3/uL (130-400); RBC Distribution Width 19.5 % (11.5-14.5); Red Blood Cell (RBC) Count 3.21 mill/uL (4.20-5.40); White Blood Cell (WBC) Count 13.9 10x3/uL (4.8-10.8)
[2023-11-18] MEDS: cefTRIAXone\\ROCEPHIN 1 GM in Sodium Chloride 0.9% 100 ML IVPB SCH (06:01)
[2023-11-18 06:40] LABS: Anion Gap 21 mmol/L (10-20); BUN (Urea Nitrogen) 80 mg/dL (9.8-20.1); Calc. Creatinine Clearance 18 mL/min (70-130); Calcium 7.1 mg/dL (7.8-10.44); Carbon Dioxide 20 mmol/L (22-29); Chloride 93 mmol/L (98-107); Estimated GFR 8; Glucose 394 mg/dL (70-105); Magnesium 1.4 mg/dL (1.6-2.6); Potassium 4.6 mmol/L (3.5-5.1); Sodium 129 mmol/L (136-145)
[2023-11-18] MEDS: Azithromycin 500 MG in Sodium Chloride 0.9% 250 ML 250 ML IVPB SCH (06:43)
[2023-11-18] MEDS: Heparin 10,000 UNITS/ 10 ML VIAL SLOW IVP SCH (06:45)
[2023-11-18] MEDS: HumaLOG 300 UNITS/3 ML VIAL SC PRN ×2 (07:00→12:08)
[2023-11-18 07:04] LABS: Albumin 3.1 g/dL (3.5-5.0); Anion Gap 23 mmol/L (10-20); BUN (Urea Nitrogen) 81 mg/dL (9.8-20.1); BUN/Creatinine Ratio 13.87; CK (CPK) 787 U/L (29-168); Calc. Creatinine Clearance 18 mL/min (70-130); Calcium 7.2 mg/dL (7.8-10.44); Carbon Dioxide 20 mmol/L (22-29); Chloride 94 mmol/L (98-107); Estimated GFR 8; Glucose 397 mg/dL (70-105); Phosphorus 7.1 mg/dL (2.3-4.7); Potassium 4.7 mmol/L (3.5-5.1); Sodium 132 mmol/L (136-145)
[2023-11-18] MEDS: Heparin 25,000 units/D5W 500 ML IVPB SCH (07:10)
[2023-11-18 07:47] LABS: Sodium, Urine 50 mmol/L (Not Available)
[2023-11-18 07:53] LABS: Legionella Urinary Ag Negative (Negative)
[2023-11-18 07:54] LABS: Strep pneumo Urine Ag NEGATIVE (NEGATIVE)
[2023-11-18 07:59] LABS: Protein, Urine Random Quant 221 mg/dL (1-14)
[2023-11-18] MEDS ORDERED: Magnesium 2 GM/50 ML(in water) 2 GM in Premix 1 BAG IVPB SCH (08:45)
[2023-11-18] MEDS ORDERED: FLU VACC QS2023-24(6MOS UP)/PF 60 MCG/0.5 ML SYRINGE IM ONE (09:00)
[2023-11-18] MEDS ORDERED: Insulin Glargine 30 UNITS/0.3 ML VIAL SC SCH (10:15)
[2023-11-18] MEDS ORDERED: Furosemide 40 MG (4 mL) VIAL SLOW IVP SCH (10:15)
[2023-11-18] MEDS: NIFEdipine XL 90 MG ER.TAB PO SCH (10:26)
[2023-11-18] MEDS: Famotidine/PF 20 mg/2ml Vial SLOW IVP SCH (10:27)
[2023-11-18] MEDS: CALCIUM GLUC 1 GM/NS 50 ML 1 GM in Premix 1 BAG IVPB SCH ×2 (10:27→11:56)
[2023-11-18] MEDS: Metoprolol Tartrate 100 MG TAB PO SCH ×2 (10:27→20:47)
[2023-11-18] MEDS: predniSONE 20 MG TAB PO SCH (10:28)
[2023-11-18 11:40] LABS: SARS-CoV-2 NAA Rapid Test Not Detected (NotDetected)
[2023-11-18] MEDS: Acetaminophen 325 MG TAB PO PRN (16:43)
[2023-11-18] MEDS ORDERED: Amiodarone 200 MG TAB PO SCH ×2 (17:15→21:00)
[2023-11-18] MEDS: Labetalol HCl 100 MG/20 ML VIAL SLOW IVP PRN (18:12)
[2023-11-18] MEDS ORDERED: Ipratropium/Albuterol 3 ML NEB NEB PRN (23:06)
[2023-11-19] MEDS: Ipratropium/Albuterol 3 ML NEB NEB SCH ×5 (00:57→22:16)
[2023-11-19] MEDS: cefTRIAXone\\ROCEPHIN 1 GM in Sodium Chloride 0.9% 100 ML IVPB SCH (04:26)
[2023-11-19] MEDS: Azithromycin 500 MG in Sodium Chloride 0.9% 250 ML 250 ML IVPB SCH (05:27)
[2023-11-19 05:47] LABS: Albumin 2.8 g/dL (3.5-5.0); Anion Gap 20 mmol/L (10-20); BUN (Urea Nitrogen) 88 mg/dL (9.8-20.1); BUN/Creatinine Ratio 14.47; CK (CPK) 788 U/L (29-168); Calc. Creatinine Clearance 17 mL/min (70-130); Carbon Dioxide 25 mmol/L (22-29); Chloride 91 mmol/L (98-107); Estimated GFR 7; Glucose 194 mg/dL (70-105); Phosphorus 6.5 mg/dL (2.3-4.7); Sodium 132 mmol/L (136-145)
[2023-11-19 05:49] LABS: Calcium 6.6 mg/dL (7.8-10.44)
[2023-11-19] MEDS: HumaLOG 300 UNITS/3 ML VIAL SC PRN ×2 (07:35→17:17)
[2023-11-19] MEDS ORDERED: CEFAZOLIN 2 GM in Sodium Chloride 0.9% 100 ML IVPB SCH (08:30)
[2023-11-19] MEDS: predniSONE 20 MG TAB PO SCH (08:47)
[2023-11-19] MEDS: NIFEdipine XL 90 MG ER.TAB PO SCH (09:20)
[2023-11-19] MEDS: Famotidine/PF 20 mg/2ml Vial SLOW IVP SCH (09:21)
[2023-11-19] MEDS: Insulin Glargine 30 UNITS/0.3 ML VIAL SC SCH (09:21)
[2023-11-19] MEDS: Metoprolol Tartrate 100 MG TAB PO SCH ×2 (09:21→20:56)
[2023-11-19] MEDS ORDERED: Calcium Chloride 13.6 MEQ in Sodium Chloride 0.9% 100 ML IVPB SCH ×2 (10:30→10:45)
[2023-11-19] MEDS ORDERED: Ergocalciferol 1.25 MG(50,000 UNITS) CAP PO SCH (10:45)
[2023-11-19] MEDS: Lactated Ringer's 1,000 ML IV SCH (12:06)
[2023-11-19 12:23] LABS: HBSAg Index 0.19 S/CO (0-0.99); Hep B Surf Ag Non-Reactive S/CO (NonReactive); Hep C IgG Ab Non-Reactive S/CO (NonReactive); Hep C Index 0.06 S/CO (0-0.79)
[2023-11-19 12:26] LABS: Hep B Core Total Ab Reactive (NonReactive); Hep B Core Total Index 6.35 S/CO (0-0.79)
[2023-11-19 13:23] LABS: HBSAB Concentration 8.72 mIU/mL; Hep B Surf AB Reactive (NonReactive)
[2023-11-19] MEDS ORDERED: EPINEPHrine 1 MG/ML VIAL ONE (14:07)
[2023-11-19] MEDS ORDERED: Protamine Sulfate 50 MG/5 ML VIAL ONE (14:07)
[2023-11-19] MEDS ORDERED: Bupivacaine PF 0.5% 30 ML VIAL ONE (14:08)
[2023-11-19] MEDS ORDERED: Lidocaine 2% PF 5 ML VIAL ONE (14:08)
[2023-11-19] MEDS ORDERED: PROPOFOL 40 ML ONE (14:12)
[2023-11-19] MEDS ORDERED: fentaNYL 50 mcg/mL 1 mL Vial ONE ×2 (14:12→14:55)
[2023-11-19] MEDS ORDERED: Midazolam HCl 2 mg/2 ml Vial ONE (14:12)
[2023-11-19] MEDS ORDERED: CEFAZOLIN 2 GM VIAL ONE (14:23)
[2023-11-19] MEDS ORDERED: Sodium Chloride 0.9% 100 ML ONE (14:24)
[2023-11-19] MEDS: Calcium Carbonate 600 MG + Vit D TAB PO SCH (20:56)
[2023-11-19] MEDS: Acetaminophen 325 MG TAB PO PRN (22:43)
[2023-11-20 05:31] LABS: #Basophils 0.1 thou/uL (0.0-0.2); #Eosinphils 0.2 thou/uL (0.0-0.7); #Monocytes 0.8 thou/uL (0.11-0.59); #Neutrophils 8.5 thou/uL (1.40-6.50); %Basophils 0.5 % (0.0-1.0); %Eosinophils 1.8 % (0.0-10.0); %Lymphocytes 6.2 % (21.0-51.0); %Monocytes 8.2 % (0.0-10.0); %Neutrophils 82.5 % (42.0-75.0); Hematocrit 27.3 % (36.0-47.0); Hemoglobin 8.5 g/dL (12.0-16.0); Mean Corpuscular HGB CONC 31.1 g/dL (32.0-36.0); Mean Corpuscular Hemoglobin 26.6 pg (27.0-31.0); Mean Corpuscular Volume 85.3 fl (78.0-98.0); Platelet Count 500 10x3/uL (130-400); RBC Distribution Width 20.2 % (11.5-14.5); White Blood Cell (WBC) Count 10.2 10x3/uL (4.8-10.8)
[2023-11-20] MEDS: cefTRIAXone\\ROCEPHIN 1 GM in Sodium Chloride 0.9% 100 ML IVPB SCH (05:40)
[2023-11-20] MEDS: Azithromycin 500 MG in Sodium Chloride 0.9% 250 ML 250 ML IVPB SCH (06:19)
[2023-11-20 06:35] LABS: Iron 22 ug/dL (50-170); Iron Binding Capacity, Total 211 mcg/dL (265-497)
[2023-11-20 07:06] LABS: Anion Gap 13 mmol/L (10-20); BUN (Urea Nitrogen) 55 mg/dL (9.8-20.1); Calc. Creatinine Clearance 23 mL/min (70-130); Calcium 7.8 mg/dL (7.8-10.44); Carbon Dioxide 29 mmol/L (22-29); Chloride 99 mmol/L (98-107); Estimated GFR 10; Glucose 237 mg/dL (70-105); Sodium 137 mmol/L (136-145)
[2023-11-20] MEDS: Ipratropium/Albuterol 3 ML NEB NEB SCH ×4 (07:33→23:01)
[2023-11-20] MEDS: NIFEdipine XL 90 MG ER.TAB PO SCH (08:18)
[2023-11-20] MEDS: Calcium Carbonate 600 MG + Vit D TAB PO SCH ×2 (08:19→21:11)
[2023-11-20] MEDS: Aspirin 81 mg Enteric Coated Tablet PO SCH (08:19)
[2023-11-20] MEDS: Metoprolol Tartrate 100 MG TAB PO SCH ×2 (08:19→21:11)
[2023-11-20] MEDS: Insulin Glargine 30 UNITS/0.3 ML VIAL SC SCH (08:19)
[2023-11-20] MEDS: Famotidine/PF 20 mg/2ml Vial SLOW IVP SCH (08:20)
[2023-11-20] MEDS: Acetaminophen 325 MG TAB PO PRN (08:20)
[2023-11-20] MEDS: Iron, Sodium Ferric Gluconate 250 MG in Sodium Chloride 0.9% 250 ML 250 ML IVPB SCH (08:43)
[2023-11-20] MEDS ORDERED: Lactated Ringer's 1,000 ML IV SCH (10:04)
[2023-11-20] MEDS: Lactated Ringer's 1,000 ML IV SCH (10:15)
[2023-11-20] MEDS: HumaLOG 300 UNITS/3 ML VIAL SC PRN ×3 (12:25→22:39)
[2023-11-20] MEDS: Labetalol HCl 100 MG/20 ML VIAL SLOW IVP PRN (14:07)
[2023-11-20] MEDS ORDERED: cloNIDine 0.2 MG TAB PO SCH (16:00)
[2023-11-20] MEDS ORDERED: hydrALAZINE 20 MG/ML VIAL SLOW IVP SCH (16:30)
[2023-11-20] MEDS ORDERED: hydrALAZINE 20 MG/ML VIAL SLOW IVP PRN (16:30)
[2023-11-20] MEDS: HYDROcodone/Acetaminophen 7.5/325 mg Tablet PO PRN ×2 (16:36→21:12)
[2023-11-20] MEDS: Gabapentin 300 MG CAP PO SCH (21:10)
[2023-11-20] MEDS: NIFEdipine XL 60 MG ER.TAB PO SCH (21:11)
[2023-11-21] MEDS: HYDROcodone/Acetaminophen 7.5/325 mg Tablet PO PRN (01:08)
[2023-11-21] MEDS: cefTRIAXone\\ROCEPHIN 1 GM in Sodium Chloride 0.9% 100 ML IVPB SCH (05:05)
[2023-11-21 05:39] LABS: #Eosinphils 0.2 thou/uL (0.0-0.7); #Monocytes 0.8 thou/uL (0.11-0.59); %Basophils 0.5 % (0.0-1.0); %Eosinophils 2.7 % (0.0-10.0); %Lymphocytes 8.1 % (21.0-51.0); %Monocytes 8.7 % (0.0-10.0); %Neutrophils 79.1 % (42.0-75.0); Hematocrit 25.1 % (36.0-47.0); Hemoglobin 7.6 g/dL (12.0-16.0); Mean Corpuscular HGB CONC 30.3 g/dL (32.0-36.0); Mean Corpuscular Hemoglobin 26.8 pg (27.0-31.0); Mean Platelet Volume 11.4 fL (7.4-10.4); Platelet Count 463 10x3/uL (130-400); Red Blood Cell (RBC) Count 2.84 mill/uL (4.20-5.40); White Blood Cell (WBC) Count 8.8 10x3/uL (4.8-10.8)
[2023-11-21 05:50] LABS: Anion Gap 12 mmol/L (10-20); BUN (Urea Nitrogen) 32 mg/dL (9.8-20.1); Calc. Creatinine Clearance 29 mL/min (70-130); Calcium 8.5 mg/dL (7.8-10.44); Carbon Dioxide 29 mmol/L (22-29); Chloride 103 mmol/L (98-107); Estimated GFR 14; Glucose 111 mg/dL (70-105); Potassium 4.1 mmol/L (3.5-5.1); Sodium 140 mmol/L (136-145)
[2023-11-21 06:06] LABS: Mean Corpuscular Volume 88.4 fl (78.0-98.0)
[2023-11-21] MEDS ORDERED: Tuberculin PPD 0.1 ML VIAL I-DERMAL SCH ×2 (06:30→09:00)
[2023-11-21] MEDS: Ipratropium/Albuterol 3 ML NEB NEB SCH ×3 (07:33→19:08)
[2023-11-21] MEDS: NIFEdipine XL 60 MG ER.TAB PO SCH ×2 (10:24→23:12)
[2023-11-21] MEDS: Metoprolol Tartrate 100 MG TAB PO SCH ×2 (10:25→23:12)
[2023-11-21] MEDS: Gabapentin 300 MG CAP PO SCH (10:25)
[2023-11-21] MEDS: Aspirin 81 mg Enteric Coated Tablet PO SCH (10:25)
[2023-11-21] MEDS: Calcium Carbonate 600 MG + Vit D TAB PO SCH ×2 (10:25→23:12)
[2023-11-21] MEDS: Insulin Glargine 30 UNITS/0.3 ML VIAL SC SCH (10:26)
[2023-11-21] MEDS: EPOETIN ALFA-EPBX (ESRD) 10,000 UNITS/ML VIAL SC SCH (10:26)
[2023-11-21] MEDS: Iron, Sodium Ferric Gluconate 250 MG in Sodium Chloride 0.9% 250 ML 250 ML IVPB SCH (11:54)
[2023-11-21] MEDS ORDERED: Ondansetron PF 4 MG/2 ML Vial IVP PRN (23:51)
[2023-11-21] MEDS ORDERED: Ondansetron ODT 4 MG TAB PO PRN (23:51)
[2023-11-22] MEDS: Ipratropium/Albuterol 3 ML NEB NEB SCH ×5 (00:14→23:17)
[2023-11-22] MEDS: cefTRIAXone\\ROCEPHIN 1 GM in Sodium Chloride 0.9% 100 ML IVPB SCH (05:05)
[2023-11-22 05:24] LABS: #Eosinphils 0.3 thou/uL (0.0-0.7); #Monocytes 0.9 thou/uL (0.11-0.59); #Neutrophils 8.4 thou/uL (1.40-6.50); %Basophils 0.4 % (0.0-1.0); %Eosinophils 2.5 % (0.0-10.0); %Lymphocytes 8.3 % (21.0-51.0); %Monocytes 8.7 % (0.0-10.0); %Neutrophils 78.8 % (42.0-75.0); Hematocrit 26.5 % (36.0-47.0); Hemoglobin 8.1 g/dL (12.0-16.0); Mean Corpuscular HGB CONC 30.6 g/dL (32.0-36.0); Mean Corpuscular Hemoglobin 27.2 pg (27.0-31.0); Mean Corpuscular Volume 88.9 fl (78.0-98.0); Mean Platelet Volume 10.9 fL (7.4-10.4); Platelet Count 525 10x3/uL (130-400); RBC Distribution Width 19.8 % (11.5-14.5); Red Blood Cell (RBC) Count 2.98 mill/uL (4.20-5.40); White Blood Cell (WBC) Count 10.6 10x3/uL (4.8-10.8)
[2023-11-22 05:46] LABS: Anion Gap 9 mmol/L (10-20); BUN (Urea Nitrogen) 12 mg/dL (9.8-20.1); Calc. Creatinine Clearance 41 mL/min (70-130); Calcium 8.8 mg/dL (7.8-10.44); Carbon Dioxide 31 mmol/L (22-29); Chloride 97 mmol/L (98-107); Estimated GFR 21; Glucose 222 mg/dL (70-105); Potassium 3.9 mmol/L (3.5-5.1); Sodium 133 mmol/L (136-145)
[2023-11-22] MEDS: HumaLOG 300 UNITS/3 ML VIAL SC PRN ×3 (06:24→18:21)
[2023-11-22] MEDS: Insulin Glargine 30 UNITS/0.3 ML VIAL SC SCH (09:16)
[2023-11-22] MEDS: Famotidine/PF 20 mg/2ml Vial SLOW IVP SCH (09:16)
[2023-11-22] MEDS: Metoprolol Tartrate 100 MG TAB PO SCH ×2 (09:17→20:18)
[2023-11-22] MEDS: Aspirin 81 mg Enteric Coated Tablet PO SCH (09:17)
[2023-11-22] MEDS: NIFEdipine XL 60 MG ER.TAB PO SCH ×2 (09:17→20:17)
[2023-11-22] MEDS: Calcium Carbonate 600 MG + Vit D TAB PO SCH ×2 (09:17→20:18)
[2023-11-22] MEDS: Iron, Sodium Ferric Gluconate 250 MG in Sodium Chloride 0.9% 250 ML 250 ML IVPB SCH (09:17)
[2023-11-23] MEDS ORDERED: Sodium Chloride 0.65% Nasal 44 ML BOT EA NARE PRN (01:29)
[2023-11-23] MEDS ORDERED: Loratadine 10 MG TAB PO SCH (01:30)
[2023-11-23] MEDS: cefTRIAXone\\ROCEPHIN 1 GM in Sodium Chloride 0.9% 100 ML IVPB SCH (05:20)
[2023-11-23 05:31] LABS: #Eosinphils 0.2 thou/uL (0.0-0.7); #Monocytes 0.9 thou/uL (0.11-0.59); #Neutrophils 6.3 thou/uL (1.40-6.50); %Basophils 0.4 % (0.0-1.0); %Eosinophils 2.6 % (0.0-10.0); %Lymphocytes 11.3 % (21.0-51.0); %Monocytes 10.9 % (0.0-10.0); %Neutrophils 72.9 % (42.0-75.0); Hematocrit 26.9 % (36.0-47.0); Hemoglobin 8.1 g/dL (12.0-16.0); Mean Corpuscular HGB CONC 30.1 g/dL (32.0-36.0); Mean Corpuscular Hemoglobin 26.9 pg (27.0-31.0); Mean Corpuscular Volume 89.4 fl (78.0-98.0); Mean Platelet Volume 10.5 fL (7.4-10.4); Platelet Count 447 10x3/uL (130-400); RBC Distribution Width 20.2 % (11.5-14.5); Red Blood Cell (RBC) Count 3.01 mill/uL (4.20-5.40); White Blood Cell (WBC) Count 8.6 10x3/uL (4.8-10.8)
[2023-11-23 05:57] LABS: Anion Gap 13 mmol/L (10-20); BUN (Urea Nitrogen) 16 mg/dL (9.8-20.1); Calc. Creatinine Clearance 28 mL/min (70-130); Calcium 8.5 mg/dL (7.8-10.44); Carbon Dioxide 29 mmol/L (22-29); Chloride 103 mmol/L (98-107); Estimated GFR 14; Glucose 219 mg/dL (70-105); Potassium 3.7 mmol/L (3.5-5.1); Sodium 141 mmol/L (136-145)
[2023-11-23] MEDS: HumaLOG 300 UNITS/3 ML VIAL SC PRN ×3 (06:50→21:05)
[2023-11-23] MEDS: Ipratropium/Albuterol 3 ML NEB NEB SCH ×4 (07:36→23:23)
[2023-11-23] MEDS: Calcium Carbonate 600 MG + Vit D TAB PO SCH ×2 (08:47→21:04)
[2023-11-23] MEDS: Aspirin 81 mg Enteric Coated Tablet PO SCH (08:48)
[2023-11-23] MEDS: Insulin Glargine 30 UNITS/0.3 ML VIAL SC SCH (08:48)
[2023-11-23] MEDS ORDERED: READ PPD TEST SITE PO SCH (09:00)
[2023-11-23] MEDS: Metoprolol Tartrate 100 MG TAB PO SCH ×2 (10:23→21:04)
[2023-11-23 10:49] VITALS: BMI 33.1
[2023-11-23] MEDS: NIFEdipine XL 60 MG ER.TAB PO SCH ×2 (15:26→21:04)
[2023-11-23] MEDS: Labetalol HCl 100 MG/20 ML VIAL SLOW IVP PRN (16:46)
[2023-11-23] MEDS ORDERED: dilTIAZem 125 MG in Sodium Chloride 0.9% 100 ML IVPB SCH (17:00)
[2023-11-23] MEDS: Iron, Sodium Ferric Gluconate 250 MG in Sodium Chloride 0.9% 250 ML 250 ML IVPB SCH (17:44)
[2023-11-23 18:03] LABS: Magnesium 1.7 mg/dL (1.6-2.6)
[2023-11-23] MEDS: dilTIAZem 125 MG, Admixture Fee 1 EACH in Sodium Chloride 0.9% 100 ML IVPB SCH (21:05)
[2023-11-24 05:18] LABS: #Eosinphils 0.2 thou/uL (0.0-0.7); #Monocytes 0.9 thou/uL (0.11-0.59); #Neutrophils 4.8 thou/uL (1.40-6.50); %Basophils 0.6 % (0.0-1.0); %Eosinophils 3.3 % (0.0-10.0); %Lymphocytes 12.9 % (21.0-51.0); %Neutrophils 68.8 % (42.0-75.0); Hematocrit 27.7 % (36.0-47.0); Hemoglobin 8.3 g/dL (12.0-16.0); Mean Corpuscular Hemoglobin 26.9 pg (27.0-31.0); Mean Corpuscular Volume 89.9 fl (78.0-98.0); Mean Platelet Volume 10.4 fL (7.4-10.4); Platelet Count 398 10x3/uL (130-400); Red Blood Cell (RBC) Count 3.08 mill/uL (4.20-5.40); White Blood Cell (WBC) Count 6.9 10x3/uL (4.8-10.8)
[2023-11-24 05:34] LABS: Anion Gap 12 mmol/L (10-20); BUN (Urea Nitrogen) 11 mg/dL (9.8-20.1); Calc. Creatinine Clearance 33 mL/min (70-130); Calcium 8.6 mg/dL (7.8-10.44); Carbon Dioxide 30 mmol/L (22-29); Chloride 103 mmol/L (98-107); Estimated GFR 17; Glucose 168 mg/dL (70-105); Potassium 3.6 mmol/L (3.5-5.1); Sodium 141 mmol/L (136-145)
[2023-11-24] MEDS: HumaLOG 300 UNITS/3 ML VIAL SC PRN ×3 (06:17→17:08)
[2023-11-24] MEDS: Ipratropium/Albuterol 3 ML NEB NEB SCH ×4 (07:38→22:09)
[2023-11-24] MEDS: dilTIAZem 125 MG, Admixture Fee 1 EACH in Sodium Chloride 0.9% 100 ML IVPB SCH (07:45)
[2023-11-24] MEDS: Aspirin 81 mg Enteric Coated Tablet PO SCH (08:45)
[2023-11-24] MEDS: NIFEdipine XL 60 MG ER.TAB PO SCH ×2 (08:45→21:47)
[2023-11-24] MEDS: Famotidine/PF 20 mg/2ml Vial SLOW IVP SCH (08:45)
[2023-11-24] MEDS: Insulin Glargine 30 UNITS/0.3 ML VIAL SC SCH ×2 (08:45→22:33)
[2023-11-24] MEDS: Calcium Carbonate 600 MG + Vit D TAB PO SCH ×2 (08:45→21:47)
[2023-11-24] MEDS: Metoprolol Tartrate 100 MG TAB PO SCH ×2 (08:46→22:33)
[2023-11-25] MEDS: Acetaminophen 325 MG TAB PO PRN (00:44)
[2023-11-25] MEDS: HumaLOG 300 UNITS/3 ML VIAL SC PRN ×3 (06:28→17:22)
[2023-11-25] MEDS: Ipratropium/Albuterol 3 ML NEB NEB SCH ×4 (08:08→22:20)
[2023-11-25] MEDS: HYDROcodone/Acetaminophen 7.5/325 mg Tablet PO PRN (09:16)
[2023-11-25] MEDS: NIFEdipine XL 60 MG ER.TAB PO SCH ×2 (11:09→20:38)
[2023-11-25] MEDS: Aspirin 81 mg Enteric Coated Tablet PO SCH (11:10)
[2023-11-25] MEDS: Metoprolol Tartrate 100 MG TAB PO SCH ×2 (11:10→20:38)
[2023-11-25] MEDS: Calcium Carbonate 600 MG + Vit D TAB PO SCH ×2 (11:11→20:37)
[2023-11-25] MEDS: Insulin Glargine 30 UNITS/0.3 ML VIAL SC SCH ×2 (11:16→20:38)
[2023-11-26] MEDS: Ipratropium/Albuterol 3 ML NEB NEB SCH ×2 (07:12→13:48)
[2023-11-26] MEDS ORDERED: Ergocalciferol 1.25 MG(50,000 UNITS) CAP PO SCH (09:00)
[2023-11-26] MEDS ORDERED: Ipratropium/Albuterol 3 ML NEB NEB PRN (13:59)
[2023-11-26] MEDS: Calcium Carbonate 600 MG + Vit D TAB PO SCH ×2 (15:39→21:24)
[2023-11-26] MEDS: NIFEdipine XL 60 MG ER.TAB PO SCH ×2 (15:40→21:24)
[2023-11-26] MEDS: Aspirin 81 mg Enteric Coated Tablet PO SCH (15:41)
[2023-11-26] MEDS: Metoprolol Tartrate 100 MG TAB PO SCH ×2 (15:41→21:24)
[2023-11-26] MEDS: Famotidine/PF 20 mg/2ml Vial SLOW IVP SCH (15:42)
[2023-11-26] MEDS: Insulin Glargine 30 UNITS/0.3 ML VIAL SC SCH ×2 (15:42→21:24)
[2023-11-26] MEDS: HumaLOG 300 UNITS/3 ML VIAL SC PRN (21:25)
[2023-11-27] MEDS ORDERED: Lorazepam 2 MG/ML VIAL ONE (05:41)
[2023-11-27] MEDS ORDERED: Lorazepam 2 MG/ML VIAL SLOW IVP SCH (06:15)
[2023-11-27] MEDS: Metoprolol Tartrate 100 MG TAB PO SCH ×2 (10:02→20:57)
[2023-11-27] MEDS: Aspirin 81 mg Enteric Coated Tablet PO SCH (10:02)
[2023-11-27] MEDS: Calcium Carbonate 600 MG + Vit D TAB PO SCH ×2 (10:02→20:57)
[2023-11-27] MEDS: Insulin Glargine 30 UNITS/0.3 ML VIAL SC SCH ×2 (10:03→20:57)
[2023-11-27] MEDS: NIFEdipine XL 60 MG ER.TAB PO SCH ×2 (10:03→20:57)
[2023-11-27 10:04] LABS: #Eosinphils 0.2 thou/uL (0.0-0.7); #Monocytes 0.8 thou/uL (0.11-0.59); #Neutrophils 5.6 thou/uL (1.40-6.50); %Basophils 0.5 % (0.0-1.0); %Eosinophils 2.6 % (0.0-10.0); %Monocytes 9.9 % (0.0-10.0); %Neutrophils 72.5 % (42.0-75.0); Hematocrit 29.6 % (36.0-47.0); Hemoglobin 8.9 g/dL (12.0-16.0); Mean Corpuscular HGB CONC 30.1 g/dL (32.0-36.0); Mean Corpuscular Hemoglobin 27.1 pg (27.0-31.0); Mean Corpuscular Volume 90.2 fl (78.0-98.0); Mean Platelet Volume 10.2 fL (7.4-10.4); Platelet Count 366 10x3/uL (130-400); RBC Distribution Width 19.9 % (11.5-14.5); Red Blood Cell (RBC) Count 3.28 mill/uL (4.20-5.40); White Blood Cell (WBC) Count 7.8 10x3/uL (4.8-10.8)
[2023-11-27 10:32] LABS: Albumin 3.3 g/dL (3.5-5.0); Anion Gap 12 mmol/L (10-20); BUN (Urea Nitrogen) 18 mg/dL (9.8-20.1); BUN/Creatinine Ratio 4.69; Calc. Creatinine Clearance 25 mL/min (70-130); Calcium 8.7 mg/dL (7.8-10.44); Carbon Dioxide 25 mmol/L (22-29); Chloride 106 mmol/L (98-107); Estimated GFR 13; Glucose 155 mg/dL (70-105); Phosphorus 3.2 mg/dL (2.3-4.7); Potassium 4.3 mmol/L (3.5-5.1); Sodium 139 mmol/L (136-145); Uric Acid 4.8 mg/dL (2.6-6.0)
[2023-11-27 14:03] LABS: Bacteria/HPF None Seen HPF (None Seen); Bilirubin Negative (Negative); Blood, Urine Negative (Negative); CAUTI Indications for Culture Alt mental st,lethar; Clarity Clear (Clear); Glucose, Urine (Dipstick) 100 mg/dL (Negative); Ketone, Urine Negative (Negative); Leukocyte Negative Leu/uL (Negative); Nitrite Negative (Negative); Protein, Urine (Dipstick) 200 mg/dL (Neg-Trace); RBC/HPF 0-3 HPF (0-3); Specific Gravity, Urine 1.007 (1.002-1.036); Squamous Epithelial 0-3 HPF (0-3); Urobilinogen Normal mg/dL (Less than 2); WBC/HPF 0-3 HPF (0-3); pH, Urine 7.5 (5.0-9.0)
[2023-11-27 14:04] LABS: Urine Culture Reflex No No
[2023-11-27] MEDS: HumaLOG 300 UNITS/3 ML VIAL SC PRN (18:36)
[2023-11-28] MEDS: Insulin Glargine 30 UNITS/0.3 ML VIAL SC SCH (08:55)
[2023-11-28] MEDS: NIFEdipine XL 60 MG ER.TAB PO SCH (08:55)
[2023-11-28] MEDS: Metoprolol Tartrate 100 MG TAB PO SCH (14:47)
[2023-11-28] MEDS: Calcium Carbonate 600 MG + Vit D TAB PO SCH (14:47)
[2023-11-28] MEDS: Aspirin 81 mg Enteric Coated Tablet PO SCH (14:47)
[2023-11-28] MEDS: EPOETIN ALFA-EPBX (ESRD) 10,000 UNITS/ML VIAL SC SCH (14:48)
[2023-11-28] MEDS: Famotidine/PF 20 mg/2ml Vial SLOW IVP SCH (14:48)
[2023-11-28 15:31] VITALS: BP 162/85; TEMP 98
== END 2023-11-28 17:20 | disposition home or self-care (01) | DRG 193 ==
LOC: ERS 07:05 → ERHOLD 08:09 → IMCU/EMU 20:36 → SURG A 11-21 00:15 → 2NO 11-23 19:05
PROVIDERS: ADMIT Internal Medicine; ATTEND Internal Medicine
PROC: 0JH63XZ Insertion of Tunneled Vascular Access Device into Chest Subcutaneous Tissue and Fascia, Percutaneous Approach (ICD-10-PCS; principal; 2023-11-19)
PROC: 02HV33Z Insertion of Infusion Device into Superior Vena Cava, Percutaneous Approach (ICD-10-PCS; 2023-11-19)
PROC: B5181ZA Fluoroscopy of Superior Vena Cava using Low Osmolar Contrast, Guidance (ICD-10-PCS; 2023-11-19)
PROC: B548ZZA Ultrasonography of Superior Vena Cava, Guidance (ICD-10-PCS; 2023-11-19)
PROC: 5A09357 Assistance with Respiratory Ventilation, Less than 24 Consecutive Hours, Continuous Positive Airway Pressure (ICD-10-PCS; 2023-11-19)
PROC: 5A1D70Z Performance of Urinary Filtration, Intermittent, Less than 6 Hours Per Day (ICD-10-PCS; 2023-11-19)
PROC: 5A1D70Z Performance of Urinary Filtration, Intermittent, Less than 6 Hours Per Day (ICD-10-PCS; 2023-11-20)
DX: J18.9 Pneumonia, unspecified organism (principal); G93.41 Metabolic encephalopathy; I50.43 Acute on chronic combined systolic (congestive) and diastolic (congestive) heart failure; J96.01 Acute respiratory failure with hypoxia; N18.6 End stage renal disease; I47.10 Supraventricular tachycardia, unspecified; J44.0 Chronic obstructive pulmonary disease with (acute) lower respiratory infection; N17.9 Acute kidney failure, unspecified; E87.20 Acidosis, unspecified; M62.82 Rhabdomyolysis; I13.2 Hypertensive heart and chronic kidney disease with heart failure and with stage 5 chronic kidney disease, or end stage renal disease; M19.90 Unspecified osteoarthritis, unspecified site; K21.9 Gastro-esophageal reflux disease without esophagitis; E78.00 Pure hypercholesterolemia, unspecified; E66.9 Obesity, unspecified; F41.9 Anxiety disorder, unspecified; F32.A Depression, unspecified; F43.10 Post-traumatic stress disorder, unspecified; C50.919 Malignant neoplasm of unspecified site of unspecified female breast; E11.22 Type 2 diabetes mellitus with diabetic chronic kidney disease; E11.42 Type 2 diabetes mellitus with diabetic polyneuropathy; E87.6 Hypokalemia; D63.0 Anemia in neoplastic disease; E83.42 Hypomagnesemia; I48.0 Paroxysmal atrial fibrillation; E83.51 Hypocalcemia; E11.21 Type 2 diabetes mellitus with diabetic nephropathy; R44.1 Visual hallucinations; Z11.52 Encounter for screening for COVID-19; Z79.4 Long term (current) use of insulin; Z90.49 Acquired absence of other specified parts of digestive tract; Z88.2 Allergy status to sulfonamides; Z68.31 Body mass index [BMI] 31.0-31.9, adult
CPT/HCPCS: 36415; 36416; 71045; 80048; 80069; 81001; 82306; 82550; 82570; 82728; 83540; 83550; 83605; 83735; 83880; 84156; 84300; 84550; 85025; 85730; 86580; 86704; 87070; 87205; 87449; 87899; 90471; 90686; 90935; 93005; 93010; 93306; 94640; 94660; 96374; A4217; C1752; G0008; G0257; J0171; J0282; J0360; J0456; J0613; J0696; J1642; J1644; J1815; J1940; J2001; J2060; J2250; J2704; J2720; J2916; J3010; J3475; J3490; J7050; J7070; J7120; J7512; J7611; J7620; Q5105; S0020; S0028

== ENCOUNTER 2024-01-14 15:15 | Emergency (ER) | payer OTHER, BC ==
[2024-01-14 15:57] LABS: Actual Bicarbonate (HCO3v) 29.4 mEq/L (22-28); Analyzer IN Cardio ER; Base Excess 5.2 mEq/L (-2.0 to +3.0); Calcium, Ionized (venous) 1.03 mmol/L (1.16-1.32); Chloride (VBG) 96 mmol/L (98-106); Hematocrit-VBG 39 % (36.0-47.0); Hemoglobin (Hb) 13.3 g/dL (11.7-16.0); Potassium (VBG) 4.03 mmol/L (3.70-5.30); Sodium 137 mmol/L (133-146); pH (venous) 7.466 (7.32-7.43)
[2024-01-14 16:18] LABS: #Eosinphils 0.1 thou/uL (0.0-0.7); #Monocytes 0.4 thou/uL (0.11-0.59); #Neutrophils 2.5 thou/uL (1.40-6.50); %Basophils 0.8 % (0.0-1.0); %Eosinophils 1.9 % (0.0-10.0); %Lymphocytes 36.7 % (21.0-51.0); %Monocytes 7.9 % (0.0-10.0); %Neutrophils 52.5 % (42.0-75.0); Hematocrit 40.2 % (36.0-47.0); Hemoglobin 13.1 g/dL (12.0-16.0); Mean Corpuscular HGB CONC 32.6 g/dL (32.0-36.0); Mean Corpuscular Hemoglobin 27.6 pg (27.0-31.0); Mean Corpuscular Volume 84.6 fl (78.0-98.0); Mean Platelet Volume 11.1 fL (7.4-10.4); Platelet Count 237 10x3/uL (130-400); RBC Distribution Width 16.1 % (11.5-14.5); Red Blood Cell (RBC) Count 4.75 mill/uL (4.20-5.40); White Blood Cell (WBC) Count 4.7 10x3/uL (4.8-10.8)
[2024-01-14 16:23] LABS: INR-International Normal Ratio 0.9; Prothrombin Time 12.6 sec (12.0-14.7)
[2024-01-14 16:27] LABS: ALT (SGPT) 9 U/L (8-55); AST (SGOT) 20 U/L (5-34); Albumin 4.6 g/dL (3.5-5.0); Alkaline Phosphatase 87 U/L (40-110); Anion Gap 19 mmol/L (10-20); BUN (Urea Nitrogen) 26 mg/dL (9.8-20.1); Bilirubin, Total 0.8 mg/dL (0.2-1.2); Calc. Creatinine Clearance 0 mL/min (70-130); Calcium 9.8 mg/dL (7.8-10.44); Carbon Dioxide 27 mmol/L (22-29); Chloride 96 mmol/L (98-107); Estimated GFR 13; Globulin 3.8 g/dL (2.4-3.5); Glucose 131 mg/dL (70-105); Potassium 4.5 mmol/L (3.5-5.1); Protein, Total 8.4 g/dL (6.0-8.3); Sodium 137 mmol/L (136-145)
[2024-01-14 16:28] LABS: PTT 19.5 sec (22.9-36.1)
[2024-01-14 16:32] LABS: Troponin I 0.032 ng/mL (< 0.028)
[2024-01-14 19:20] LABS: Troponin I 0.033 ng/mL (< 0.028)
== END 2024-01-14 21:10 | disposition home or self-care (01) ==
LOC: ERS 15:15
DX: R25.1 Tremor, unspecified (principal); I13.2 Hypertensive heart and chronic kidney disease with heart failure and with stage 5 chronic kidney disease, or end stage renal disease; E11.22 Type 2 diabetes mellitus with diabetic chronic kidney disease; N18.6 End stage renal disease; I50.40 Unspecified combined systolic (congestive) and diastolic (congestive) heart failure; Z99.2 Dependence on renal dialysis; Z79.4 Long term (current) use of insulin; E11.40 Type 2 diabetes mellitus with diabetic neuropathy, unspecified; J44.9 Chronic obstructive pulmonary disease, unspecified
CPT/HCPCS: 36415; 36416; 70450; 80053; 82140; 82805; 83605; 84484; 85025; 85610; 85730; 87040

== ENCOUNTER 2024-08-13 16:01 | Outpatient (CLI) | payer BC, OTHER | END 2024-08-13 16:02 | disposition home or self-care (01) | LOC: EKG 16:01 | PROVIDERS: ATTEND Internal Medicine Nephrology | DX: Z01.810 Encounter for preprocedural cardiovascular examination (principal) | CPT/HCPCS: 93005; 93010 ==

== ENCOUNTER 2024-08-25 12:32 | Inpatient (IN) | payer BC, OTHER ==
[~2024-08-25 12:32] MED LIST: Iopamidol-370 76% 500 ML MDV (1 ML CHARGE) ONE
[2024-08-25 13:13] LABS: #Basophils Less than 0.03 10x3/uL (0.0-0.2); %Basophils 0.2 % (0.0-1.0); %Eosinophils 1.3 % (0.0-10.0); %Lymphocytes 10.5 % (21.0-51.0); %Monocytes 5.1 % (0.0-10.0); %Neutrophils 81.6 % (42.0-75.0); Hematocrit 31.4 % (36.0-47.0); Mean Corpuscular HGB CONC 31.8 g/dL (32.0-36.0); Mean Corpuscular Hemoglobin 28.5 pg (27.0-31.0); Mean Corpuscular Volume 89.5 fL (78.0-98.0); Platelet Count 255 10x3/uL (130-400); RBC Distribution Width 14.8 % (11.5-14.5); Red Blood Cell (RBC) Count 3.51 mill/uL (4.20-5.40)
[2024-08-25 13:41] LABS: ALT (SGPT) 9 U/L (8-55); AST (SGOT) 13 U/L (5-34); Albumin 3.5 g/dL (3.4-4.8); Alkaline Phosphatase 77 U/L (40-110); Anion Gap 13 mmol/L (10-20); BUN (Urea Nitrogen) 34 mg/dL (9.8-20.1); Bilirubin, Total 0.3 mg/dL (0.2-1.2); Calc. Creatinine Clearance 0 mL/min (70-130); Calcium 9.1 mg/dL (7.8-10.44); Carbon Dioxide 28 mmol/L (23-31); Chloride 102 mmol/L (98-107); Estimated GFR 11; Globulin 4.1 g/dL (2.4-3.5); Glucose 136 mg/dL (80-115); Protein, Total 7.6 g/dL (5.8-8.1); Sodium 139 mmol/L (136-145)
[2024-08-25 13:42] LABS: Troponin I 0.021 ng/mL (< 0.028)
[2024-08-25] MEDS ORDERED: methylPREDNISolone Sod Succ 40 MG VIAL ONE (14:10)
[2024-08-25] MEDS ORDERED: diphenhydrAMINE 50 MG/ML VIAL ONE (14:10)
[2024-08-25] MEDS ORDERED: Famotidine/PF 20 mg/2ml Vial ONE (14:10)
[2024-08-25] MEDS ORDERED: Ondansetron ODT 4 MG TAB PO PRN (18:15)
[2024-08-25] MEDS ORDERED: Ondansetron PF 4 MG/2 ML Vial IVP PRN (18:15)
[2024-08-25] MEDS ORDERED: Bisacodyl 5 MG TAB PO PRN (18:15)
[2024-08-25] MEDS ORDERED: Acetaminophen 325 MG TAB PO PRN (18:15)
[2024-08-25] MEDS ORDERED: Insulin Lispro 100 UNIT/ML 10 ML VIAL SC PRN (18:23)
[2024-08-25] MEDS ORDERED: Glucagon 1 MG/ML KIT IM PRN (18:23)
[2024-08-25] MEDS ORDERED: Dextrose 50% Abboject 50 ML SYRINGE SLOW IVP PRN (18:23)
[2024-08-25] MEDS ORDERED: Dextrose 5% in Water 1,000 ML IV PRN (18:23)
[2024-08-25] MEDS ORDERED: hydrALAZINE 20 MG/ML VIAL SLOW IVP PRN (18:25)
[2024-08-25] MEDS ORDERED: Ipratropium/Albuterol 3 ML NEB NEB PRN (18:48)
[2024-08-25 20:30] VITALS: BMI 33.0
[2024-08-25] MEDS ORDERED: Metoprolol Tartrate 100 MG TAB PO SCH (21:00)
[2024-08-25] MEDS: Heparin 10,000 UNITS/ 10 ML VIAL CATH SCH (22:12)
[2024-08-25] MEDS: Heparin 5,000 UNITS/ML VIAL SC SCH (22:16)
[2024-08-25] MEDS: NIFEdipine XL 60 MG ER.TAB PO SCH (22:16)
[2024-08-25] MEDS: Doxycycline 100 MG in Sodium Chloride 0.9% 100 ML IVPB SCH (22:20)
[2024-08-26 03:48] LABS: #Basophils Less than 0.03 10x3/uL (0.0-0.2); #Eosinophils Less than 0.03 10x3/uL (0.0-0.7); %Basophils 0.3 % (0.0-1.0); %Lymphocytes 11.5 % (21.0-51.0); %Monocytes 6.4 % (0.0-10.0); %Neutrophils 81.3 % (42.0-75.0); Mean Corpuscular HGB CONC 32.1 g/dL (32.0-36.0); Mean Corpuscular Hemoglobin 28.7 pg (27.0-31.0); Mean Corpuscular Volume 89.2 fL (78.0-98.0); Mean Platelet Volume 10.2 fL (7.4-10.4); Platelet Count 222 10x3/uL (130-400); RBC Distribution Width 14.9 % (11.5-14.5); Red Blood Cell (RBC) Count 3.14 mill/uL (4.20-5.40)
[2024-08-26 04:11] LABS: ALT (SGPT) 7 U/L (8-55); AST (SGOT) 10 U/L (5-34); Albumin 3.1 g/dL (3.4-4.8); Alkaline Phosphatase 65 U/L (40-110); Anion Gap 13 mmol/L (10-20); BUN (Urea Nitrogen) 44 mg/dL (9.8-20.1); Bilirubin, Total 0.2 mg/dL (0.2-1.2); Calc. Creatinine Clearance 20 mL/min (70-130); Calcium 8.9 mg/dL (7.8-10.44); Carbon Dioxide 26 mmol/L (23-31); Chloride 106 mmol/L (98-107); Estimated GFR 10; Globulin 3.7 g/dL (2.4-3.5); Glucose 171 mg/dL (80-115); Potassium 4.6 mmol/L (3.5-5.1); Protein, Total 6.8 g/dL (5.8-8.1); Sodium 140 mmol/L (136-145)
[2024-08-26] MEDS: Dapagliflozin Propanediol 10 MG TAB PO SCH (09:07)
[2024-08-26] MEDS: DULoxetine 30 MG CAP PO SCH (09:07)
[2024-08-26] MEDS: Famotidine 20 MG TAB PO SCH (09:07)
[2024-08-26] MEDS: Aspirin 81 mg Enteric Coated Tablet PO SCH (09:07)
[2024-08-26] MEDS: Metoprolol Tartrate 100 MG TAB PO SCH ×2 (10:32→20:27)
[2024-08-26] MEDS: guaiFENesin ER 600 MG TAB PO SCH ×2 (10:32→20:27)
[2024-08-26] MEDS: Febuxostat 40 MG TAB PO SCH (10:33)
[2024-08-26 12:40] LABS: Influenza A by NAA Not Detected (NotDetected); Influenza B by NAA Not Detected (NotDetected); SARS-CoV-2 NAA Rapid Test Not Detected (NotDetected)
[2024-08-26 16:43] LABS: Bacteria/HPF None Seen HPF (None Seen); Bilirubin Negative (Negative); Blood, Urine Negative (Negative); Clarity Clear (Clear); Glucose, Urine (Dipstick) 500 mg/dL (Negative); Ketone, Urine Negative (Negative); Leukocyte Negative Leu/uL (Negative); Nitrite Negative (Negative); Protein, Urine (Dipstick) 30 mg/dL (Neg-Trace); RBC/HPF 0-3 HPF (0-3); Specific Gravity, Urine 1.005 (1.002-1.036); Squamous Epithelial 0-3 HPF (0-3); Urobilinogen Normal mg/dL (Less than 2); WBC/HPF None Seen HPF (0-3)
[2024-08-26] MEDS: traMADol HCl 50 MG TAB PO PRN (20:27)
[2024-08-27 03:41] LABS: #Basophils 0.05 10x3/uL (0.0-0.2); %Basophils 0.8 % (0.0-1.0); %Eosinophils 2.1 % (0.0-10.0); %Lymphocytes 25.7 % (21.0-51.0); %Monocytes 9.3 % (0.0-10.0); %Neutrophils 61.6 % (42.0-75.0); Hematocrit 30.9 % (36.0-47.0); Hemoglobin 9.7 g/dL (12.0-16.0); Mean Corpuscular HGB CONC 31.4 g/dL (32.0-36.0); Mean Corpuscular Hemoglobin 28.2 pg (27.0-31.0); Mean Corpuscular Volume 89.8 fL (78.0-98.0); Mean Platelet Volume 10.4 fL (7.4-10.4); Platelet Count 234 10x3/uL (130-400); RBC Distribution Width 15.1 % (11.5-14.5); Red Blood Cell (RBC) Count 3.44 mill/uL (4.20-5.40)
[2024-08-27 03:59] LABS: Anion Gap 15 mmol/L (10-20); BUN (Urea Nitrogen) 62 mg/dL (9.8-20.1); Calc. Creatinine Clearance 17 mL/min (70-130); Calcium 9.1 mg/dL (7.8-10.44); Carbon Dioxide 25 mmol/L (23-31); Chloride 105 mmol/L (98-107); Estimated GFR 8; Glucose 85 mg/dL (80-115); Potassium 4.9 mmol/L (3.5-5.1); Sodium 140 mmol/L (136-145)
[2024-08-27] MEDS ORDERED: Heparin 10,000 UNITS/ 10 ML VIAL ONE (09:41)
[2024-08-27 12:23] LABS: Hep B Surf Ag NONREACTIVE S/CO (NonReactive); Hep C IgG Ab NONREACTIVE S/CO (NonReactive)
[2024-08-27 12:24] LABS: Hep B Surf AB EQUIVOCAL (NonReactive)
[2024-08-27 12:25] LABS: HBSAB Concentration 10.53 mIU/mL; Hep B Core Total Ab REACTIVE (NonReactive); Hep B Core Total Index 5.72 S/CO (0-0.79)
[2024-08-27] MEDS: Metoprolol Tartrate 100 MG TAB PO SCH (16:56)
[2024-08-27] MEDS: Insulin Lispro 100 UNIT/ML 10 ML VIAL SC PRN (17:57)
[2024-08-28 04:31] LABS: #Basophils 0.04 10x3/uL (0.0-0.2); %Basophils 0.6 % (0.0-1.0); %Lymphocytes 23.4 % (21.0-51.0); %Monocytes 12.5 % (0.0-10.0); %Neutrophils 59.8 % (42.0-75.0); Hematocrit 33.1 % (36.0-47.0); Hemoglobin 10.6 g/dL (12.0-16.0); Mean Corpuscular Hemoglobin 28.9 pg (27.0-31.0); Mean Corpuscular Volume 90.2 fL (78.0-98.0); Mean Platelet Volume 10.4 fL (7.4-10.4); Platelet Count 287 10x3/uL (130-400); RBC Distribution Width 15.1 % (11.5-14.5); Red Blood Cell (RBC) Count 3.67 mill/uL (4.20-5.40)
[2024-08-28 04:44] LABS: Anion Gap 16 mmol/L (10-20); BUN (Urea Nitrogen) 46 mg/dL (9.8-20.1); Calc. Creatinine Clearance 19 mL/min (70-130); Calcium 8.8 mg/dL (7.8-10.44); Carbon Dioxide 23 mmol/L (23-31); Chloride 102 mmol/L (98-107); Estimated GFR 9; Glucose 183 mg/dL (80-115); Potassium 4.2 mmol/L (3.5-5.1); Sodium 137 mmol/L (136-145)
[2024-08-28] MEDS: Colchicine 0.6 MG TAB PO SCH (08:54)
[2024-08-28] MEDS: Metoprolol Tartrate 100 MG TAB PO SCH (08:54)
[2024-08-28 11:58] VITALS: TEMP 98.3
[2024-08-28 15:19] VITALS: BP 149/87
== END 2024-08-28 14:51 | disposition home or self-care (01) | DRG 291 ==
LOC: ERS 12:32 → 2SE 18:00 → OBSVTOIN 08-26 14:16
PROVIDERS: ADMIT Internal Medicine; ATTEND Family Medicine
DX: I13.2 Hypertensive heart and chronic kidney disease with heart failure and with stage 5 chronic kidney disease, or end stage renal disease (principal); I50.23 Acute on chronic systolic (congestive) heart failure; N18.6 End stage renal disease; J98.11 Atelectasis; F33.9 Major depressive disorder, recurrent, unspecified; J98.6 Disorders of diaphragm; I16.0 Hypertensive urgency; E11.22 Type 2 diabetes mellitus with diabetic chronic kidney disease; C50.911 Malignant neoplasm of unspecified site of right female breast; I47.9 Paroxysmal tachycardia, unspecified; M19.90 Unspecified osteoarthritis, unspecified site; D63.1 Anemia in chronic kidney disease; E66.9 Obesity, unspecified; F43.10 Post-traumatic stress disorder, unspecified; E78.00 Pure hypercholesterolemia, unspecified; Z68.31 Body mass index [BMI] 31.0-31.9, adult; Z99.2 Dependence on renal dialysis; Z88.2 Allergy status to sulfonamides; Z88.1 Allergy status to other antibiotic agents; Z88.8 Allergy status to other drugs, medicaments and biological substances; Z91.041 Radiographic dye allergy status; Z90.11 Acquired absence of right breast and nipple; Z92.21 Personal history of antineoplastic chemotherapy; Z92.3 Personal history of irradiation; Z79.899 Other long term (current) drug therapy; Z98.891 History of uterine scar from previous surgery; Z90.49 Acquired absence of other specified parts of digestive tract
CPT/HCPCS: 36415; 36416; 71045; 71275; 76000; 80048; 80053; 81001; 83880; 84145; 84484; 85025; 86704; 86706; 86803; 87040; 87340; 93005; 93010; 96372; 96374; 96375; 96376; G0378; J1200; J1644; J1815; J2919; J3490; Q9967

== ENCOUNTER 2024-08-29 15:37 | Inpatient (IN) | payer BC, OTHER ==
[2024-08-29 16:17] LABS: #Basophils 0.05 10x3/uL (0.0-0.2); %Basophils 0.7 % (0.0-1.0); %Eosinophils 2.6 % (0.0-10.0); %Lymphocytes 26.2 % (21.0-51.0); %Monocytes 10.8 % (0.0-10.0); %Neutrophils 58.8 % (42.0-75.0); Hematocrit 33.4 % (36.0-47.0); Hemoglobin 11.3 g/dL (12.0-16.0); Mean Corpuscular HGB CONC 33.8 g/dL (32.0-36.0); Mean Corpuscular Hemoglobin 29.4 pg (27.0-31.0); Mean Corpuscular Volume 86.8 fL (78.0-98.0); Platelet Count 306 10x3/uL (130-400); RBC Distribution Width 15.1 % (11.5-14.5); Red Blood Cell (RBC) Count 3.85 mill/uL (4.20-5.40)
[2024-08-29 16:19] LABS: Actual Bicarbonate (HCO3v) 29.8 mEq/L (22-28); Base Excess 4.6 mEq/L (-2.0 to +3.0); Calcium, Ionized (venous) 1.04 mmol/L (1.16-1.32); Chloride (VBG) 97 mmol/L (98-106); Hematocrit-VBG 35 % (36.0-47.0); Potassium (VBG) 4.31 mmol/L (3.70-5.30); Sodium 138 mmol/L (133-146)
[2024-08-29] MEDS ORDERED: Metoprolol Tartrate 5 MG (5 mL) VIAL ONE (16:40)
[2024-08-29] MEDS ORDERED: Magnesium 2 GM/50 ML BAG (IN WATER) ONE (16:40)
[2024-08-29 17:10] LABS: ALT (SGPT) 6 U/L (8-55); AST (SGOT) 12 U/L (5-34); Albumin 3.4 g/dL (3.4-4.8); Alkaline Phosphatase 74 U/L (40-110); Anion Gap 17 mmol/L (10-20); BUN (Urea Nitrogen) 25 mg/dL (9.8-20.1); Bilirubin, Total 0.2 mg/dL (0.2-1.2); Calc. Creatinine Clearance 0 mL/min (70-130); Calcium 8.6 mg/dL (7.8-10.44); Carbon Dioxide 24 mmol/L (23-31); Chloride 100 mmol/L (98-107); Estimated GFR 15; Globulin 4.1 g/dL (2.4-3.5); Glucose 171 mg/dL (80-115); Magnesium 1.7 mg/dL (1.6-2.6); Potassium 3.4 mmol/L (3.5-5.1); Protein, Total 7.5 g/dL (5.8-8.1); Sodium 138 mmol/L (136-145)
[2024-08-29 17:11] LABS: Acetaminophen Less than 10 mcg/mL (Less than 10); Alcohol Less than 10.0 mg/dL (Less than 10); Salicylate Less than 8.0 mg/dL (Less than 8.0)
[2024-08-29 17:15] LABS: Troponin I Less than 0.010 ng/mL (< 0.028)
[2024-08-29 17:34] LABS: Amphetamine Not Detected (NotDetected); Barbiturates Screen Not Detected (NotDetected); Benzodiazepine Screen Not Detected (NotDetected); Cocaine Metabolite Screen Not Detected (NotDetected); Methadone Not Detected (NotDetected); Methamphetamine Not Detected (NotDetected); Opiate Screen Not Detected (NotDetected); Oxycodone Screen Not Detected (NotDetected); Phencyclidine (PCP) Not Detected (NotDetected); THC/Cannabinoid Screen Not Detected (NotDetected); Tricyclic Screen Not Detected (NotDetected)
[2024-08-29] MEDS ORDERED: HYDROcodone/Acetaminophen 7.5/325 mg Tablet PO PRN (19:06)
[2024-08-29] MEDS ORDERED: Ondansetron PF 4 MG/2 ML Vial IVP PRN (19:09)
[2024-08-29] MEDS ORDERED: Acetaminophen 325 MG TAB PO PRN (19:09)
[2024-08-29 19:51] VITALS: BMI 32.4
[2024-08-29] MEDS ORDERED: Metoprolol Tartrate 100 MG TAB PO SCH (21:00)
[2024-08-29] MEDS ORDERED: NIFEdipine XL 60 MG ER.TAB PO SCH ×2 (21:00)
[2024-08-29] MEDS: NIFEdipine XL 60 MG ER.TAB PO SCH (21:02)
[2024-08-29] MEDS: Apixaban 2.5 MG TAB PO SCH (21:02)
[2024-08-29] MEDS: Isosorbide Dinitrate 20 MG TAB PO SCH (21:03)
[2024-08-29] MEDS: hydrALAZINE 25 MG TAB PO SCH (21:03)
[2024-08-29] MEDS ORDERED: Dextrose 50% Abboject 50 ML SYRINGE SLOW IVP PRN (22:49)
[2024-08-29] MEDS ORDERED: Dextrose 5% in Water 1,000 ML IV PRN (22:49)
[2024-08-29] MEDS ORDERED: Glucagon 1 MG/ML KIT IM PRN (22:49)
[2024-08-29] MEDS: Insulin Lispro 100 UNIT/ML 10 ML VIAL SC PRN (23:15)
[2024-08-30] MEDS: hydrALAZINE 20 MG/ML VIAL SLOW IVP PRN (04:49)
[2024-08-30 08:14] LABS: #Basophils 0.04 10x3/uL (0.0-0.2); %Basophils 0.8 % (0.0-1.0); %Eosinophils 3.2 % (0.0-10.0); %Lymphocytes 24.5 % (21.0-51.0); %Monocytes 12.9 % (0.0-10.0); %Neutrophils 57.8 % (42.0-75.0); Hematocrit 30.1 % (36.0-47.0); Hemoglobin 9.6 g/dL (12.0-16.0); Mean Corpuscular HGB CONC 31.9 g/dL (32.0-36.0); Mean Corpuscular Hemoglobin 28.5 pg (27.0-31.0); Mean Corpuscular Volume 89.3 fL (78.0-98.0); Mean Platelet Volume 10.6 fL (7.4-10.4); Platelet Count 261 10x3/uL (130-400); RBC Distribution Width 15.3 % (11.5-14.5); Red Blood Cell (RBC) Count 3.37 mill/uL (4.20-5.40)
[2024-08-30 08:40] LABS: Anion Gap 15 mmol/L (10-20); BUN (Urea Nitrogen) 34 mg/dL (9.8-20.1); Calc. Creatinine Clearance 21 mL/min (70-130); Calcium 8.8 mg/dL (7.8-10.44); Carbon Dioxide 28 mmol/L (23-31); Chloride 100 mmol/L (98-107); Estimated GFR 11; Glucose 120 mg/dL (80-115); Potassium 4.1 mmol/L (3.5-5.1); Sodium 139 mmol/L (136-145)
[2024-08-30] MEDS: Potassium Chloride 20 MEQ TAB PO SCH (09:18)
[2024-08-30] MEDS: Colchicine 0.6 MG TAB PO SCH (09:24)
[2024-08-30] MEDS ORDERED: Epoetin (ESRD) 20,000 UNITS/ML MDV SC SCH (11:00)
[2024-08-30] MEDS: Insulin Lispro 100 UNIT/ML 10 ML VIAL SC PRN (11:38)
[2024-08-30] MEDS: EPOETIN ALFA-EPBX (ESRD) 10,000 UNITS/ML VIAL SC SCH (14:15)
[2024-08-30] MEDS: hydrALAZINE 20 MG/ML VIAL SLOW IVP SCH (18:33)
[2024-08-30] MEDS: cloNIDine 0.1 MG TAB PO SCH (20:16)
[2024-08-30] MEDS ORDERED: cloNIDine 0.2 MG TAB PO SCH (21:00)
[2024-08-30] MEDS ORDERED: Isosorbide Mononitrate 30 MG ER.TAB PO SCH (21:00)
[2024-08-31 05:53] LABS: #Basophils 0.04 10x3/uL (0.0-0.2); %Basophils 0.8 % (0.0-1.0); %Eosinophils 2.9 % (0.0-10.0); %Lymphocytes 21.4 % (21.0-51.0); %Monocytes 14.1 % (0.0-10.0); %Neutrophils 59.5 % (42.0-75.0); Hematocrit 29.7 % (36.0-47.0); Hemoglobin 9.5 g/dL (12.0-16.0); Mean Corpuscular Hemoglobin 28.1 pg (27.0-31.0); Mean Corpuscular Volume 87.9 fL (78.0-98.0); Mean Platelet Volume 10.6 fL (7.4-10.4); Platelet Count 248 10x3/uL (130-400); RBC Distribution Width 15.9 % (11.5-14.5); Red Blood Cell (RBC) Count 3.38 mill/uL (4.20-5.40)
[2024-08-31 06:08] LABS: Anion Gap 13 mmol/L (10-20); BUN (Urea Nitrogen) 48 mg/dL (9.8-20.1); Calc. Creatinine Clearance 18 mL/min (70-130); Calcium 8.9 mg/dL (7.8-10.44); Carbon Dioxide 26 mmol/L (23-31); Chloride 102 mmol/L (98-107); Estimated GFR 9; Glucose 147 mg/dL (80-115); Potassium 4.4 mmol/L (3.5-5.1); Sodium 137 mmol/L (136-145)
[2024-08-31] MEDS: Isosorbide Mononitrate 30 MG ER.TAB PO SCH ×3 (08:29→20:43)
[2024-08-31] MEDS: Febuxostat 40 MG TAB PO SCH (08:29)
[2024-08-31] MEDS: DULoxetine 30 MG CAP PO SCH (08:29)
[2024-08-31] MEDS: hydrALAZINE 20 MG/ML VIAL SLOW IVP PRN (15:49)
[2024-09-01] MEDS ORDERED: Heparin 10,000 UNITS/ 10 ML VIAL ONE (08:57)
[2024-09-01 12:57] VITALS: BP 112/57; TEMP 98.3
[2024-09-01] MEDS: Apixaban 2.5 MG TAB PO SCH (14:22)
[2024-09-01] MEDS: FLU (Fluarix Triv) TS24-25(6MOS UP)/PF 45 MCG/0.5 ML Syringe IM ONE (14:24)
[2024-09-01] MEDS ORDERED: Isosorbide Mononitrate 30 MG ER.TAB PO SCH (21:00)
[2024-09-01] MEDS ORDERED: Apixaban 5 MG TAB PO SCH (21:00)
== END 2024-09-01 17:19 | disposition home or self-care (01) | DRG 308 ==
LOC: ERS 15:37 → OBS 18:34 → OBSVTOIN 08-31 17:17
PROVIDERS: ADMIT Internal Medicine; ATTEND Student in an Organized Health Care Education/Training Program
DX: I48.0 Paroxysmal atrial fibrillation (principal); N18.6 End stage renal disease; I13.2 Hypertensive heart and chronic kidney disease with heart failure and with stage 5 chronic kidney disease, or end stage renal disease; I50.22 Chronic systolic (congestive) heart failure; J98.11 Atelectasis; I24.9 Acute ischemic heart disease, unspecified; G89.4 Chronic pain syndrome; E11.21 Type 2 diabetes mellitus with diabetic nephropathy; E66.9 Obesity, unspecified; I16.0 Hypertensive urgency; I25.10 Atherosclerotic heart disease of native coronary artery without angina pectoris; J44.9 Chronic obstructive pulmonary disease, unspecified; D63.1 Anemia in chronic kidney disease; Z79.891 Long term (current) use of opiate analgesic; Z91.041 Radiographic dye allergy status; Z88.2 Allergy status to sulfonamides; Z88.8 Allergy status to other drugs, medicaments and biological substances; Z88.1 Allergy status to other antibiotic agents; Z79.82 Long term (current) use of aspirin; Z79.899 Other long term (current) drug therapy; Z68.20 Body mass index [BMI] 20.0-20.9, adult; Z85.3 Personal history of malignant neoplasm of breast; Z92.21 Personal history of antineoplastic chemotherapy; Z92.3 Personal history of irradiation; Z90.11 Acquired absence of right breast and nipple; Z90.49 Acquired absence of other specified parts of digestive tract; E89.0 Postprocedural hypothyroidism; I47.10 Supraventricular tachycardia, unspecified
CPT/HCPCS: 36415; 36416; 71045; 80048; 80053; 80306; 80307; 82805; 83735; 84443; 84484; 85025; 90935; 93005; 96365; 96366; 96372; 96375; 96376; G0257; G0378; J0360; J1644; J1815; J3475; Q5105